=== PATIENT | female | born 1945 | race Caucasian/White ===

== ENCOUNTER 2017-02-19 16:05 | Inpatient (IN) | payer OTHER ==
[~2017-02-19] VITALS: Ht 157.5 cm; Wt 77.1 kg
--- NOTE | 2017-02-19 16:10 | NUR ---
02 SAT 91 RA AT [facility]
--- NOTE | 2017-02-19 16:19 | NUR ---
PT TO ED FOR EVAL OF LOW O2 SATS. PT WENT TO SEE HER PCP DR MILADYS ALMANZA FOR NOT FEELING WELL. SENT TO ED FOR FURTHER EVAL. PT STATES SHE HAS NOT BEEN EATING AND FEELING LETHARGIC. RA SATS 91%. PT DENIES PAIN, C/P.
--- NOTE | 2017-02-19 17:20 | NUR ---
RT COMPLETED BREATHING TX
--- NOTE | 2017-02-19 17:33 | ED DYSPNEA/ASTHMA COMPLAINT ---
History of Present Illness General Chief Complaint: General Adult Stated Complaint: SENT FOR EVAL LOW 02 SAT Allergies Coded Allergies: No Known Allergies (02/19/17) Triage Note: PT TO ED FOR EVAL OF LOW O2 SATS. PT WENT TO SEE HER PCP DR MILADYS ALMANZA FOR NOT FEELING WELL. SENT TO ED FOR FURTHER EVAL. PT STATES SHE HAS NOT BEEN EATING AND FEELING LETHARGIC. RA SATS 91%. PT DENIES PAIN, C/P. HPI: Ms. Santos 71 YO F with no significant PMH except smoking that she quit 25 years ago and surgery for hernia in the past was sent to [facility] ED by her PCP due to dyspnea, cough with sputum and exhaustion she has since ( 02/15/17). She reports that she was all right four days back when she developed cough along with fever. cough comes in bouts and brings up phlegm that is greenish in color nonbloody and scant in quantity. She also reported that since she is feeling exhausted and decreased appetite. She told the only drug she was taking after the of her was Lexapro. Last time she took Lexapro on Sunday. She denied chest pain, palpitation, LOC, dizziness, nausea, vomiting, abdominal pain and change in bowel movement. (BLADIMIR MALDONADO,RINGGOLD) General Source: patient, old records Exam Limitations: no limitations Vital Signs & Intake/Output Vital Signs & Intake/Output Vital Signs Date Time Temp Pulse Resp B/P B/P Pulse O2 O2 Flow FiO2 Mean Ox Delivery Rate 02/20 0011 100.2 02/19 2303 98.3 116 18 140/70 90 Room Air 02/19 2150 90 Nasal 3.0L Cannula 02/19 2140 100.2 110 24 150/85 90 Nasal 3.0L Cannula 02/19 2050 99.0 100 94 Nasal 2.0L Cannula 02/19 1935 100.0 108 18 149/67 93 Nasal 2.0L Cannula 02/19 1911 103 20 93 Nasal 2.0L Cannula 02/19 1834 103 19 94 Nasal 2.0L Cannula 02/19 1752 94 Nasal 4.0L Cannula 02/19 1645 92 Nasal 2.0L Cannula 02/19 1618 98.5 114 20 134/80 91 Room Air ED Intake and Output 02/20 0000 02/19 1200 Intake Total 200 Output Total Balance 200 Intake, Oral 200 Reconcile Medications Aspirin (Ecotrin*) 81 MG TABLET.DR 1 TAB PO DAILY HEART/BLOOD (Reported) Calcium Carbonate/Vitamin D3 (Calcium 500 + D Tablet) 500 MG-400 TABLET 1 TAB PO DAILY SUPPLEMENT (Reported) Cyanocobalamin (Vitamin B-12) (Unknown Strength) TABLET (Unknown Dose) PO DAILY SUPPLEMENT (Reported) Escitalopram Oxalate 20 MG TABLET 1 TAB PO DAILY MENTAL HEALTH (Reported) Triage Nurses Notes Reviewed? yes (KALEN DOLAN MD) Past History Travel History Traveled to [place] past 21 day No Medical History Psychiatric: depression Psychosocial History What is your primary language Italian Tobacco Use: Quit >30 days ago ETOH Use: denies use Illicit Drug Use: denies illicit drug use (MARK GARRISON MD) Medical History Any Pertinent Medical History? see below for history Surgical History Surgical History: non-contributory Family History Hx Contributory? No (KALEN DOLAN MD) Review of Systems Review of Systems Constitutional: Reports: fever, weakness. EENTM: Reports: no symptoms. Respiratory: Reports: cough, short of breath, sputum production. GI: Reports: no symptoms. Genitourinary: Reports: no symptoms. Musculoskeletal: Reports: no symptoms. Skin: Reports: no symptoms. Hematologic/Endocrine: Reports: no symptoms. (MARK GARRISON MD) Review of Systems Cardiovascular: Reports: see HPI. Neurological/Psychological: Reports: no symptoms. Immunologic/Allergic: Reports: no symptoms. All Other Systems: Reviewed and Negative (KALEN DOLAN MD) Physical Exam Physical Exam General Appearance: alert, awake, mild distress Respiratory: decreased breath sounds, rhonchi (MARK GARRISON MD) Physical Exam Head: atraumatic, normal appearance Eyes: Bilateral: PERRL, EOMI. Ears, Nose, Throat: normal pharynx, normal ENT inspection, hearing grossly normal Neck: normal inspection, supple, full range of motion, NO JVD Cardiovascular: regular rate/rhythm, normal peripheral pulses Gastrointestinal: normal bowel sounds, soft, non-tender, no organomegaly Extremities: normal inspection, normal capillary refill, normal range of motion Neurologic/Psych: no motor/sensory deficits, awake, alert, oriented x 3, normal gait, normal mood/affect Lymphatic: no anterior cervical mary Core Measures ACS in differential dx? No Severe Sepsis Present: No Septic Shock Present: No (MAGDALENO MALDONADO,KALEN Cespedes) Progress Differential Diagnosis: bronchitis, CHF, COPD, pulmonary embolism, pneumonia (BLADIMIR MALDONADO,RINGGOLD) Plan of Care: Orders Procedure Date/time Status Heart Healthy Diet 02/20 B Active CBC WITHOUT DIFFERENTIAL 02/20 600 Active BASIC ELECTROLYTES PLUS BUN&CR 02/20 600 Active OXYGEN SETUP (GEN) 02/19 2200 Complete Vital Signs 02/19 2149 Active Teach/Educate 02/19 2149 Active Pain Treatment and Response 02/19 2149 Active Nutritional Intake, Monitor 02/19 2149 Active Isolation 02/19 2149 Active Intake & Output 02/19 2149 Active Patient Care Conference 02/19 2149 Active Activity/Ambulation 02/19 2149 Active Pathway - chart 02/19 2053 Active TRC EVALUATION (GEN) 02/20 2052 Active Pathway - chart 02/20 2052 Active House Staff 02/20 2052 Active Patient Data 02/20 2052 Active SPECIMEN TO BE OBTAINED 02/20 2052 Active LOWER RESPIRATORY CULTURE 02/20 2052 Active Patient Data 02/20 2016 Active ED Holding Orders 02/19 2011 Active Admit to inpatient 02/19 2011 Active Vital Signs 02/19 2011 Active Code Status 02/19 2011 Active BLOOD CULTURE 02/19 1800 Active Intake & Output 02/19 1751 Active LOWER RESPIRATORY CULTURE 02/19 170 Active BLOOD CULTURE 02/19 170 Active URINALYSIS 02/19 170 Active TROPONIN LEVEL 02/19 170 Complete CBC WITHOUT DIFFERENTIAL 02/19 170 Complete B-TYPE NATRIURETIC PEP (BNP) 02/19 1708 Complete BASIC METABOLIC PANEL 02/19 1708 Complete EKG 02/19 1708 Active INCENTIVE SPIROMETRY TRX (GEN) 02/19 UNK Active VTE Mechanical Prophylaxis 02/19 UNK Active Vital Signs 02/19 UNK Complete Current Medications Sig/Pancho Start time Last Medication Dose Stop Time Status Admin Aspirin Buffered 81 MG DAILY 02/20 1000 AC (Ecotrin) Azithromycin 500 MG DAILY 02/20 1000 CAN (Zithromax) Azithromycin 500 MG Q24H 02/20 1000 AC (Zithromax) Dextrose/Water 250 ML (D5W) Calcium Carbonate 500 MG DAILY 02/20 1000 AC (TUMS) Escitalopram Oxalate 20 MG DAILY 02/20 1000 AC (Lexapro) Acetaminophen 650 MG Q6P PRN 02/19 2100 AC 02/20 (Tylenol) 0011 Acetaminophen/ 1 TAB Q6P PRN 02/19 2100 AC Hydrocodone Bitart (Vicodin) Oxycodone/ 2 TAB Q6P PRN 02/19 2100 AC Acetaminophen (Percocet) Sodium Chloride 1,000 ML .[id number] 02/19 2100 AC 02/19 (Normal Saline 0.9%) 2308 Amoxicillin 250 MG TID 02/19 1807 AC 02/19 (Amoxil) 2308 Laboratory Tests 02/19/17 1730: Anion Gap 11, Estimated GFR > 60, BUN/Creatinine Ratio 18.8, Glucose 131 H, Calcium 9.5, Troponin I 0.02, Iwe-M-Kbszjskcqmt Pept 151 H, CBC w Diff NO MAN DIFF REQ, RBC 4.89, MCV 84.3, MCH 27.5, RDW 15.0 H, MPV 8.3, Gran % 77.5 H, Lymphocytes % 9.2 L, Monocytes % 13.2 H, Eosinophils % 0, Basophils % 0.1, Absolute Granulocytes 7.9 H, Absolute Lymphocytes 0.9 L, Absolute Monocytes 1.3 H, Absolute Eosinophils 0, Absolute Basophils 0, PUBS MCHC 32.6 L Microbiology 02/20 2052 LOWER RESP: Respiratory Culture - ORD 02/20 2052 LOWER RESP: Gram Stain - ORD 02/19 1834 BLOOD: Blood Culture - RECD 02/19 1800 BLOOD: Blood Culture - COLB 02/19 170 LOWER RESP: Respiratory Culture - ORD 02/20 1708 LOWER RESP: Gram Stain - ORD According to history and examination we planned to start O2, EKG, C-XRAY, and labs. We also decided to nebulize her with albuterol and adrovent. As the patient is insisting going home so we will taper the O2 from 4L to 2L and obserb her if her saturation doesn't decrease then we will taper to her baseline that's room air before we send her home. We will also start amoxicillin 250mg orally that she can continue at home. (BLADIMIR MALDONADO,MARK) 7:[address] CHEST ANGIOGRAM (LAURA MALDONADO,RAHEL) Diagnostic Imaging: Viewed by Me: Radiology Read, CT Scan. Discussed w/RAD: Radiology Read, CT Scan. Initial ED EKG: NSR, nonspecific ST T wave chg Prior EKG: unchanged Hand-Off Endorsed To: RAHEL SANCHEZ MD Endorsed Time: 1899 Pending: CT (MAGDALENO MALDONADO,KALEN Cespedes) Radiology Impression: PATIENT: MARLENA SANTOS PRESENT AGE: 71 PATIENT ACCOUNT NO: [id number] : 44 LOCATION: [facility] ORDERING PHYSICIAN: MARK GARRISON MD SERVICE DATE: 02/19/17 EXAM TYPE: CAT - CTA CHEST-PULMONARY EMBOLISM EXAMINATION: CT ANGIOGRAM OF THE CHEST WITH AND WITHOUT CONTRAST (CT PULMONARY ANGIOGRAM FOR PE) CLINICAL INFORMATION: Reason for Study:
Presumptive Dx: pulmonary embolism
Signs Symptoms: dyspnea, desaturated to 84% on room air
COMPARISON: None TECHNIQUE: Prior to contrast administration, noncontrast localization images were obtained. Subsequently, multidetector volumetric imaging was performed from the thoracic inlet to below the diaphragms following the administration of 80 mL Omnipaque 350 intravenous contrast. No contrast reaction reported. Sagittal, coronal, and MIP oblique sagittal reformatted images were obtained on the CT workstation, uploaded to PACS, and reviewed. Total exam dose-length product 462 mGy-cm. FINDINGS: QUALITY OF STUDY/CONTRAST BOLUS: Satisfactory PULMONARY ARTERIES: No central or segmental pulmonary emboli. THORACIC AORTA: No aneurysm or dissection. LUNG: Both lungs are well-expanded. There is ill-defined patchy alveolar opacities in both upper lobes slightly greater on the right and superior segments off lower lobe. In addition there is a bandlike opacity with air bronchograms in right middle lobe adjacent to the major fissure and in the lingula. There are ill-defined alveolar opacities also scattered in both lower lobes. No confluent consolidation seen. PLEURA: No pleural effusion or pneumothorax. MEDIASTINUM: Normal heart size. No pericardial effusion. There are reactive lymph nodes in the aortic window with the largest lymph node measuring 1.1 cm image 19, series 4. No evidence of septal bowing or right heart strain. Suspect small hiatal hernia. CHEST WALL/AXILLA: No axillary or internal mammary lymphadenopathy. OSSEOUS STRUCTURES: No acute or suspicious osseous abnormality. UPPER ABDOMEN: Visualized liver, spleen, pancreas and bilateral adrenal adrenal glands unremarkable. There are multiple radiopaque gallstones without wall thickening. No reflux of contrast into the hepatic veins to suggest elevated right heart pressures. IMPRESSION: No evidence of PE or aortic dissection or aneurysm. Multiple ill-defined nonconfluent alveolar infiltrates in both upper lobes, both lower lobes predominantly in upper lobes. There are dense bandlike consolidations in right middle lobe and lingula. These above findings are suggestive of multilobular infiltrates. There are reactive lymph nodes in the mediastinum as discussed above. Suspect small hiatal hernia. VTE: negative DICTATED BY: DEEPA SMITH MD DATE/TIME DICTATED:02/19/171943 NATURAL RESOURCE MANAGER :ERNIE DATE/TIME TRANSCRIBED:02/19/171943 CONFIDENTIAL, DO NOT COPY WITHOUT APPROPRIATE AUTHORIZATION. <Electronically signed in Other Vendor System> SIGNED BY: DEEPA SMITH MD 02/19/171999 (LAURA MALDONADO,RAHEL) Departure Departure Condition: Stable Clinical Impression Primary Impression: Acute respiratory failure with hypoxia Secondary Impressions: Bronchitis Referrals: MILADYS ALMANZA MD (PCP/Family) Departure Forms: Customer Survey General Discharge Information (BLADIMIR MALDONADO,MARK) Departure Disposition: STILL A PATIENT Admission Note Spoke With: KATIA AGOSTO MD Documentation of Exam: Documentation of any treatments & extenuating circumstances including Concerns Regarding Discharge (functional status, medication knowledge or non-compliance, living conditions, etc.) that warrant an admission rather than observation: [ FOLLOW UP CTA, IV ABX, O2, PULM CONSULT, NEBS] Resident Co-Sign Statement Statement: ED Attending supervision documentation- [X] I saw and evaluated the patient. I have also reviewed all the pertinent lab results and diagnostic results. I agree with the findings and the plan of care as documented in the Resident's documentation. [X] I have reviewed the ED Record and agree with the Resident's documentation. [] Additions or exceptions (if any) to the Resident's note and plan are summarized below: [Patient sent in by her primary care physician for evaluation of fevers chills and anorexia productive cough and shortness of breath and hypoxia. Patient has decreased breath sounds with scattered rhonchi. Chest x-ray does not show any evidence of pneumonia. She has a left shift on her CBCs. Patient is requiring O2. Patient is alert and oriented 3. Patient is refusing to stay in the hospital since she states that she has to go home and take care of her dog. Patient advised that she needs further treatment. Patient still insistent upon going home. Patient ambulated in the emergency department.] (MAGDALENO MALDONADO,KALEN Cespedes) Departure Time of Disposition: 2010 (LAURA MALDONADO,RAHEL) Critical Care Note Critical Care Note Critical Care Time: mins: (45 MIN) (MAGDALENO MALDONADO,KALEN Cespedes)
[2017-02-19 17:36] LABS: ABSOLUTE BASOPHIL COUNT 0 /CUMM (0.0-0.2); ABSOLUTE EOSINOPHIL COUNT 0 /CUMM (0.0-0.7); ABSOLUTE GRANULOCYTE CT 7.9 /CUMM (1.4-6.5); ABSOLUTE LYMPH COUNT 0.9 /CUMM (1.2-3.4); ABSOLUTE MONOCYTE COUNT 1.3 /CUMM (0.10-0.60); BASOPHIL % 0.1 % (0.0-2.0); EOSINOPHIL % 0 % (0-5); GRANULOCYTE % 77.5 % (42.2-75.2); HEMATOCRIT 41.2 % (37-47); MEAN CORPUSCULAR HGB 27.5 PG (27.0-31.0); MEAN CORPUSCULAR HGB CONC 32.6 G/DL (33.0-37.0); MEAN CORPUSCULAR VOLUME 84.3 FL (81.0-99.0); MEAN PLATELET VOLUME 8.3 FL (7.4-10.4); PLATELET COUNT 292 /CUMM (130-400); RED BLOOD CELL CT 4.89 /CUMM (4.20-5.40); WHITE BLOOD CELL COUNT 10.1 /CUMM (4.8-10.8)
--- NOTE | 2017-02-19 17:49 | NUR ---
PT REPORTS COUGHING SINCE SUNDAY WITH GREEN PHLEM PRODUCTION. REPORTS NO HOME 02. LUNG SOUNDS CLEAR IN UPPER LOBES, DIMINISHED IN BASES. PT DENIES CP OR SOB. REPORTS NO HX OF COPD. PT A&OX4, RESP EVEN AND NONLABORED, EQUAL RISE AND FALL OF THE CHEST AND IN NAD AT THIS TIME. 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
--- NOTE | 2017-02-19 17:54 | NUR ---
LABS DRAWN AND SENT BY [facility], EKG COMPLETED BY [facility].
--- NOTE | 2017-02-19 17:55 | RADIOLOGY REPORT ---
EXAMINATION: XR PORTABLE CHEST CLINICAL INFORMATION: Dyspnea, COPD. COMPARISON: None TECHNIQUE: Portable frontal view of the chest was obtained. FINDINGS: The cardiomediastinal silhouette is largely unremarkable. There is mild mild interstitial prominence age and etiology indeterminate. Opacities of the bilateral lung bases likely overlying soft tissues. The lungs and pleural spaces otherwise appear clear without evidence of congestion, consolidation, or significant appearing effusion or atelectasis. There is no evidence of pneumothorax or pulmonary edema. Included osseous structures appear largely unremarkable. IMPRESSION: No evidence of an acute intrathoracic process. No definite pulmonary edema.
--- NOTE | 2017-02-19 18:07 | NUR ---
PT STATES "I DON'T WANT AN IV BECAUSE IM NOT STAYING." DR. DOLAN AWARE.
[2017-02-19] MEDS ORDERED: CALCIUM 500 +1 EAC5 PO (18:24)
[2017-02-19] MEDS ORDERED: ASPIRIN EC81 M1 PO (18:24)
[2017-02-19] MEDS ORDERED: ESCITALOPRAM OX20 MG PO (18:24)
[2017-02-19] MEDS ORDERED: VITAMIN B-121000 MC3 PO (18:25)
--- NOTE | 2017-02-19 18:30 | NUR ---
PER DR. DOLAN, ONLY 1SET OF BLOOD CULTURES TO BE DRAWN AND THIS TIME. YANETH CASAS NOTIFIED.
--- NOTE | 2017-02-19 18:55 | NUR ---
WHILE AMBULATING PT 02 84%.. INFORMED
--- NOTE | 2017-02-19 18:56 | NUR ---
FIRST SET OF BLOOD CULTURES SENT AT THIS TIME.
--- NOTE | 2017-02-19 19:11 | NUR ---
IV STARTED BY MEERA ALLEN IN PREP FOR CT. CT CALLED AND WILL GET PT SHORTLY. PT VERBALIZES AND AGREES TO POC.
--- NOTE | 2017-02-19 19:24 | NUR ---
PT IN CT FOR CTA AT THIS TIME.
--- NOTE | 2017-02-19 19:36 | NUR ---
PT BACK FROM CT AT THIS TIME.
--- NOTE | 2017-02-19 19:49 | NUR ---
AWAITING CTA RESULTS AT THIS TIME.
--- NOTE | 2017-02-19 20:00 | CT SCAN REPORT ---
EXAMINATION: CT ANGIOGRAM OF THE CHEST WITH AND WITHOUT CONTRAST (CT PULMONARY ANGIOGRAM FOR PE) CLINICAL INFORMATION: Reason for Study:
Presumptive Dx: pulmonary embolism
Signs Symptoms: dyspnea, desaturated to 84% on room air
COMPARISON: None TECHNIQUE: Prior to contrast administration, noncontrast localization images were obtained. Subsequently, multidetector volumetric imaging was performed from the thoracic inlet to below the diaphragms following the administration of 80 mL Omnipaque 350 intravenous contrast. No contrast reaction reported. Sagittal, coronal, and MIP oblique sagittal reformatted images were obtained on the CT workstation, uploaded to PACS, and reviewed. Total exam dose-length product 462 mGy-cm. FINDINGS: QUALITY OF STUDY/CONTRAST BOLUS: Satisfactory PULMONARY ARTERIES: No central or segmental pulmonary emboli. THORACIC AORTA: No aneurysm or dissection. LUNG: Both lungs are well-expanded. There is ill-defined patchy alveolar opacities in both upper lobes slightly greater on the right and superior segments off lower lobe. In addition there is a bandlike opacity with air bronchograms in right middle lobe adjacent to the major fissure and in the lingula. There are ill-defined alveolar opacities also scattered in both lower lobes. No confluent consolidation seen. PLEURA: No pleural effusion or pneumothorax. MEDIASTINUM: Normal heart size. No pericardial effusion. There are reactive lymph nodes in the aortic window with the largest lymph node measuring 1.1 cm image 19, series 4. No evidence of septal bowing or right heart strain. Suspect small hiatal hernia. CHEST WALL/AXILLA: No axillary or internal mammary lymphadenopathy. OSSEOUS STRUCTURES: No acute or suspicious osseous abnormality. UPPER ABDOMEN: Visualized liver, spleen, pancreas and bilateral adrenal adrenal glands unremarkable. There are multiple radiopaque gallstones without wall thickening. No reflux of contrast into the hepatic veins to suggest elevated right heart pressures. IMPRESSION: No evidence of PE or aortic dissection or aneurysm. Multiple ill-defined nonconfluent alveolar infiltrates in both upper lobes, both lower lobes predominantly in upper lobes. There are dense bandlike consolidations in right middle lobe and lingula. These above findings are suggestive of multilobular infiltrates. There are reactive lymph nodes in the mediastinum as discussed above. Suspect small hiatal hernia. VTE: negative
--- NOTE | 2017-02-19 20:25 | History & Physical ---
VIBHA MALDONADO,[facility] 02/19/172022: General Information and HPI MD Statement: I have seen and personally examined MARLENA SANTOS and documented this H&P. Source of Information: patient Exam Limitations: no limitations History of Present Illness: Patient is a 71-year-old female without any significant past medical history who has been feeling increased fatigue and decreased appetite since 02/15/2017. She states that she has noticed increasing shortness of breath on exertion, a productive cough with greenish phlegm, and fever once of 101F. She has also noticed that her feet have been a little more swollen than usual. She went to her primary care physician Dr. Beckham today for not feeling well. Her oxygen saturation on room air was 91%. She was sent by her primary care physician to the ED for further evaluation. The patient denies any fevers, chills, night sweats, headache, chest pain, palpitations, dizziness, nausea, vomiting, abdominal pain, changes in elimination. In the ED she received a nebulizer treatment with albuterol and atrovent and was started on amoxicillin 250mg for bronchitis. Allergies/Medications Allergies: Coded Allergies: No Known Allergies (02/19/17) Home Med list Aspirin (Ecotrin*) 81 MG TABLET.DR 1 TAB PO DAILY HEART/BLOOD (Reported) Calcium Carbonate/Vitamin D3 (Calcium 500 + D Tablet) 500 MG-400 TABLET 1 TAB PO DAILY SUPPLEMENT (Reported) Cyanocobalamin (Vitamin B-12) (Unknown Strength) TABLET (Unknown Dose) PO DAILY SUPPLEMENT (Reported) Escitalopram Oxalate 20 MG TABLET 1 TAB PO DAILY MENTAL HEALTH (Reported) Past History Travel History Traveled to [place] past 21 day No Medical History Psychiatric: depression Surgical History Surgical History: hernia repair Past Family/Social History Psychosocial History Smoking Status: Former Smoker (2ppd. last use 35 years ago) ETOH Use: denies use Illicit Drug Use: denies illicit drug use Review of Systems Review of Systems Constitutional: Denies: chills, diaphoresis, fever. EENTM: Denies: no symptoms. Cardiovascular: Denies: chest pain, edema, palpitations. Respiratory: Reports: cough, sputum production. GI: Denies: abdominal pain. Genitourinary: Reports: no symptoms. Musculoskeletal: Reports: no symptoms. Skin: Reports: no symptoms. Exam & Diagnostic Data Last 24 Hrs of Vital Signs/I&O Vital Signs Date Time Temp Pulse Resp B/P B/P Pulse O2 O2 Flow FiO2 Mean Ox Delivery Rate 02/20 0011 100.2 02/19 2303 98.3 116 18 140/70 90 Room Air 02/19 2150 90 Nasal 3.0L Cannula 02/20 2140 100.2 110 24 150/85 90 Nasal 3.0L Cannula 02/19 2050 99.0 100 94 Nasal 2.0L Cannula 02/19 1935 100.0 108 18 149/67 93 Nasal 2.0L Cannula 02/19 1911 103 20 93 Nasal 2.0L Cannula 02/19 1834 103 19 94 Nasal 2.0L Cannula 02/19 1752 94 Nasal 4.0L Cannula 02/19 1645 92 Nasal 2.0L Cannula 02/19 1618 98.5 114 20 134/80 91 Room Air Intake & Output 02/20 0800 02/20 0000 02/19 1600 Intake Total 200 Output Total Balance 200 Intake, Oral 200 Physical Exam General Appearance Alert, Oriented X3, Cooperative, No Acute Distress Skin No Rashes Skin Temp/Moisture Exam: Warm/Dry HEENT Atraumatic, PERRLA Neck Supple Lymphatic no neck lymphadenoapthy Cardiovascular Normal S1, Normal S2, tachycardic Lungs Normal Air Movement, scattered rhonchi Abdomen Soft, No Tenderness, No Hepatospenomegaly, No Masses Neurological Normal Speech Last 24 Hrs of Labs/Red: Laboratory Tests 02/19/17 1730: Anion Gap 11, Estimated GFR > 60, BUN/Creatinine Ratio 18.8, Glucose 131 H, Calcium 9.5, Troponin I 0.02, Bin-K-Wefqgnugcrl Pept 151 H, CBC w Diff NO MAN DIFF REQ, RBC 4.89, MCV 84.3, MCH 27.5, RDW 15.0 H, MPV 8.3, Gran % 77.5 H, Lymphocytes % 9.2 L, Monocytes % 13.2 H, Eosinophils % 0, Basophils % 0.1, Absolute Granulocytes 7.9 H, Absolute Lymphocytes 0.9 L, Absolute Monocytes 1.3 H, Absolute Eosinophils 0, Absolute Basophils 0, PUBS MCHC 32.6 L Microbiology 02/20 217 URINE ROUT: Legionella Antigen - ORD 02/20 217 URINE ROUT: Streptococcus pneumoniae Antigen (M - ORD 07/03 2052 LOWER RESP: Respiratory Culture - ORD 02/20 2052 LOWER RESP: Gram Stain - ORD 02/19 1834 BLOOD: Blood Culture - RECD 02/19 1800 BLOOD: Blood Culture - COLB 02/19 170 LOWER RESP: Respiratory Culture - ORD 02/19 170 LOWER RESP: Gram Stain - ORD Diagnostic Data CXR Results FINDINGS: The cardiomediastinal silhouette is largely unremarkable. There is mild mild interstitial prominence age and etiology indeterminate. Opacities of the bilateral lung bases likely overlying soft tissues. The lungs and pleural spaces otherwise appear clear without evidence of congestion, consolidation, or significant appearing effusion or atelectasis. There is no evidence of pneumothorax or pulmonary edema. Included osseous structures appear largely unremarkable. IMPRESSION: No evidence of an acute intrathoracic process. No definite pulmonary edema. Other Results CTA-chest IMPRESSION: No evidence of PE or aortic dissection or aneurysm. Multiple ill-defined nonconfluent alveolar infiltrates in both upper lobes, both lower lobes predominantly in upper lobes. There are dense bandlike consolidations in right middle lobe and lingula. These above findings are suggestive of multilobular infiltrates. There are reactive lymph nodes in the mediastinum as discussed above. Suspect small hiatal hernia. VTE: negative Assessment/Plan Assessment: A: Patient is a 71-year-old female without any significant past medical history who has been feeling increased fatigue, sob on exertion, and productive cough with greenish plegm, and decreased appetite since 02/15/2017 found to have an unremarkable cxr, sinus tachy on ekg, BNP of 151, but dense bandlike consolidations in right middle lobe and lingula suggestive of multilobular infiltrates due to pneumonia. 1. Hypoxic respiratory failure secondary to pneumonia Patient has been feeling increased fatigue, sob on exertion, and productive cough with greenish plegm, and decreased appetite for the past 5 days. She stated her max temp during this time period was 101. Her o2 saturation on RA at her PCP was 91%. She was given a nebulizer treatment in the ED and 1 dose of amoxicillin for bronchitis. Her current O2 saturation was 90% on 3L NC. Her ekg revealed sinus tach and troponin of .02 making ACS lower on the differential. We will recheck her ekg and trops again tomorrow AM. Her BNP of 151 and lack of edema on physical exam would place CHF exascerbation also lower on the differential. Another possible ddx could possibly be COPD given her smoking history but she did not state a history of COPD. Her WBC is 10.1 with a left shift. Her hypoxia in addition to history of green sputum and multilobular infiltrates would make pneumonia is most likely diagnosis at this point despite her lack of fever. We will test for sources of pneumonia including: legionella, strep pneumo, resp cultures/gramstain, and blood cultures. We will also start nebulizer treatments prn and mucinex. We will treat her with azithromycin. -f/u att note -f/u legionella antigen, strep pneumo antige, respiratory culture, blood cultures, and gram stain -continue ipratropium prn, albuterol, prn and guafensin -Azithromycin 500mg q24h IV and ceftriaxone 1g daily -repeat ekg -f/u repeat trops 2. Persistent tachycardia Tachycardia is in the setting of sepsis and dehydration. Her pulse rate has ranged from 110-116. We will hydrate and monitor her HR. We will check TSH, free T4. We will repeat EKG and repeat tropnins in the AM as stated above -continue NS fluids -f/u tsh and t4 3. Depression Patient reports history of depression on escitalopram 20mg at home -continue escitalopram 20mg daily po 4. Pain management -tylenol 650 q6 prn pain scale 1-3 -vicodin q6 prn pain 4-6 scale 5. Home medications Patient takes tums 500mg daily and aspirin 81mg daily at home -continue tums 500mg daily -continue aspirin 81 mg daily 6. Anticoagulation: Lovenox 7. Code status: As Ranked By This Provider Problem List: 1. Acute respiratory failure with hypoxia 2. Tachycardia Core Measures/Miscellaneous Acute Coronary Syndrome ACS Diagnosis: No Cerebrovascular Accident CVA/TIA Diagnosis: No Congestive Heart Failure CHF Diagnosis: No VTE (View Protocol) VTE Risk Factors: Acute medical illness, Age > 40 No [facility] VTE prophylaxis d/t: No contraindications No VTE Pharm Prophylaxis d/t: VTE low risk (on lovenox), No contraindications VTE Diagnosis: No VTE Type: NONE VTE Confirmed by (Test): NONE Sepsis (View Protocol) Severe Sepsis Present: No Septic Shock Septic Shock Present: No Miscellaneous Documentation Attending Case Discussed With: SURENDRA MALDONADO,KATIA ADAME MD,[facility] 02/20/17 0144: Assessment/Plan As Ranked By This Provider Problem List: 1. Pneumonia 2. Acute respiratory failure with hypoxia 3. Bronchitis Core Measures/Miscellaneous Acute Coronary Syndrome ACS Diagnosis: No Cerebrovascular Accident CVA/TIA Diagnosis: No Congestive Heart Failure CHF Diagnosis: No VTE (View Protocol) VTE Risk Factors: [facility] medical illness [facility] prophylaxis d/t: No contraindications No VTE Pharm Prophylaxis d/t: No contraindications VTE Diagnosis: No VTE Type: NONE VTE Confirmed by (Test): NONE Miscellaneous Documentation Attending Case Discussed With: KATIA AGOSTO MD Primary Care Physician: MILADYS ALMANZA MD Patient sees these Specialists NA Level of Patient Care: General Medicine Resident Review Statement Resident Statement: examined this patient, discussed with event marketing intern, agreed with event marketing intern Other Findings: Ms Santos is a 71-year-old female with past medical history of depression who presented to the emergency department on the evening of 02/19/2017 stating that she is continuing to experience a productive cough. Cough is been going on since last week . Phlegm is green in nature. Prior to admission the patient had visited her PCP Dr. Beckham who instructed her to come to the emergency department after she was found to be hypoxic. Prior to coming into the emergency department the patient also was febrile, temperature taken at home was 101. She denies any recent travel or exposure to sick contacts. She does have an extensive smoking history, she smoked 2PPD (quit 35 years ago), did not reveal to us just how long she smoked for. Review of symptoms: positive for shortness of breath however she denied any chest pain, palpitations, loss of consciousness, dizziness. She denies any nausea or vomiting. HEENT: extraocular motion intact, no nystagmus. Pupils equally round and reactive to light and accommodation. Nose is atraumatic. External auditory canal and Tympanic membranes clear. Pharynx normal. No swelling or edema. Neck: Supple, no lymphadenopathy, normal range of motion without pain or tenderness Back: Nontender, no CVA tenderness. Cardiovascular: Regular rate and rhythms no murmurs rubs or gallops, Respiratory: Chest nontender. No respiratory distress. Scattered Rhonchi. Abdomen: Soft, nontender nondistended, no appreciable organomegaly. Normal bowel sounds. No ascites, no rebound or guarding. Extremity: Edema 2+, no calf tenderness to palpation, normal and equal pulses. Neuro: Alert oriented X3. Cranial nerves II through XII grossly intact. Skin: No appreciable rash on exposed skin, skin is warm and dry. L: WBC 9.2, H&H 13.5 and 41.2 respectively. Platelets 307. Initial troponin 0.02. ProBNP 151. Glucose 131. EXAM TYPE: RAD - XRY-PORTABLE CHEST XRAY IMPRESSION: No evidence of an acute intrathoracic process. No definite pulmonary edema. EXAM TYPE: CAT - CTA CHEST-PULMONARY EMBOLISM IMPRESSION: No evidence of PE or aortic dissection or aneurysm. Multiple ill-defined nonconfluent alveolar infiltrates in both upper lobes, both lower lobes predominantly in upper lobes. There are dense bandlike consolidations in right middle lobe and lingula. These above findings are suggestive of multilobular infiltrates. A/P This is a 71-year-old female past medical history of depression who is coming for worsening dyspnea and dyspnea on exertion. This has likely been caused by pneumonia. Acute hypoxic respiratory failure. Likely due to community-acquired pneumonia, Impending Sepsis. We will admit the patient to general medicine service and continue on IV antibiotics. IV ceftriaxone and IV azithromycin for community-acquired pneumonia. Follow-up on urinary antigen for Legionella and streptococcal pneumonia. Sputum culture. Mucinex 600 MG BID Persistent tachycardia CTA done in the ED negative for a DVT EKG and Troponin in AM to rule out any cardiac pathology. TSH and FT4: 1.490 and 1.22 History of depression Continue Escitalopram 20 mg DVT prophylaxis Lovenox Full code SURENDRA MALDONADO, [facility] 02/20/17 0354: Attending MD Review Statement Attending Statement Attending MD Statement: examined this patient, discuss w/resident/PA/LAST INSERTER, agreed w/resident/PA/LAST INSERTER Attending Assessment/Plan: 71 yo F ex-smoker with h/o depression, osteopenia, is sent in from PCP's office for evaluation of hypoxia. Patient reports, she developed sore throat 5 days ago associated with cough productive of green phlegm, exertional dyspnea, fatigue, anorexia and poor appetite. She tried OTC meds without relief. Noted a temp of 101 at home. Seen at PCP's office today, was hypoxic to 87% on RA, sent to ER. Denies sick contacts, no recent travel. Never had flu shot. She lives with her dog and did not wish to stay in the hospital as there is no one to care for her dog. She recceived amoxicillin (for bronchitis) and was ambulated in the ER, dropped her sats to 84% on RA was evidently dyspneic. Admission was suggested, she was able to arrange for her sister in law to take care of her dog for tonight. Vitals: Tmax 100.2, tachycardic to 110's, BP 140/70, sats 90-94% on 3L. Exam: AAO, in no apparent distress, no pharyngeal erythema, dry mucous membranes+, Chest bibasilar reduced air entry with scattered rhonchi R>L. Otherwise unremarkable exam. Labs: no leukocytosis, bicarb 31, trop neg. EKG: Sinus tachycardia. CXR: no acute process, no pulmonary edema. CTA chest: no PE, multilobular infiltrates both upper lobes with dense bandlike consolidation in right middle lobe and lingula, reactive mediastinal lymph nodes. 1. Acute hypoxic respiratory failure, impending sepsis in the setting of community acquired pneumonia (multilobular infiltrates) and bronchitis. GM admit , TRC nebs, check urine legionella, strep Ag, sputum culture, IV ceftriaxone and azithromycin, mucinex BID, IV fluids. 2. Persistent tachycardia in the setting of sepsis and dehydration. Will hydrate and monitor HR. No evidence of PE on CTA. Would check TSH, free T4 to assess for underlying hyperthyroidism. Recheck EKG and troponin in AM. DVT ppx Lovenox. Full code. Social issue: Please note, patient is worried about the care of her dog and would wish to be discharged in AM.
--- NOTE | 2017-02-19 20:41 | NUR ---
REPORT GIVEN TO MEERA MURCIA AND ANSWERED ALL QUESTIONS. TRANSPORT BOOKED.
[2017-02-19 21:40] VITALS: BP 150/85
[2017-02-19 23:03] VITALS: BP 140/70
--- NOTE | 2017-02-20 00:23 | NUR ---
A+O X 3. ON 3L O2 VIA NC. EXERTIONAL SHORTNESS OF BREATH NOTED HR 110. ASSOCIATE PROFESSOR OF MEDIA ARTS AWARE. TEMP 100.2. TYLENOL GIVEN. OTHER VSS DENIES CHEST PAIN. + PULSES. DENIES NUMBNESS/TINGLING. BOWEL SOUNDS AUDIBLE SKIN C/D/I. STEADY GAIT. PATIENT REFUSED TO BE WEIGHED. BED LOW AND LOCKED. CALL LIGHT WITHIN REACH. SAFETY MAINTAINED
--- NOTE | 2017-02-20 03:27 | Admission Certification ---
Admission Certification Certification Statement - As attending physician, I certify that at the time of - admission, based on clinical presentation, severity of - symptoms, need for further diagnostic testing and - therapeutic interventions, and risk of adverse outcomes - without in-hospital treatment, in my clinical assessment, - this patient requires an acute hospital stay for a minimum - of two nights or longer. I have also considered psychsocial - factors such as support system, advanced age, financial - issues, cognitive issues, and failed out-patient treatments, - past re-admission history, safety of patient, and lack of - compliance as applicable. Specific rationale supporting this admission is: Acute hypoxic respiratory failure, community acquired pneumonia.
[2017-02-20 07:01] VITALS: BP 136/78
[2017-02-20 07:47] LABS: ABSOLUTE BASOPHIL COUNT 0 /CUMM (0.0-0.2); ABSOLUTE EOSINOPHIL COUNT 0 /CUMM (0.0-0.7); ABSOLUTE GRANULOCYTE CT 7.1 /CUMM (1.4-6.5); ABSOLUTE LYMPH COUNT 1.1 /CUMM (1.2-3.4); BASOPHIL % 0.3 % (0.0-2.0); EOSINOPHIL % 0.3 % (0-5); GRANULOCYTE % 76.7 % (42.2-75.2); HEMATOCRIT 41.2 % (37-47); MEAN CORPUSCULAR HGB 27.6 PG (27.0-31.0); MEAN CORPUSCULAR HGB CONC 32.7 G/DL (33.0-37.0); MEAN CORPUSCULAR VOLUME 84.3 FL (81.0-99.0); MEAN PLATELET VOLUME 8.5 FL (7.4-10.4); PLATELET COUNT 307 /CUMM (130-400); RBC DISTRIBUTION WIDTH 15.4 % (11.5-14.5); RED BLOOD CELL CT 4.88 /CUMM (4.20-5.40); WHITE BLOOD CELL COUNT 9.2 /CUMM (4.8-10.8)
--- NOTE | 2017-02-20 09:04 | PN- Housestaff ---
Subjective Follow-up For: Multilobar pneumonia Subjective: She is feel ok this morning, not as well as she had hoped. She has a dog at home with whom she is very close, and she feels bad leaving him alone. She wanted to go home today, but we discussed that she needs at least 24-48 hours of IV antibiotics for multilobar pneumonia, and she understands. Review of Systems Constitutional: Reports: malaise, weakness. Cardiovascular: Denies: no symptoms. Respiratory: Reports: cough, short of breath, sputum production. Gastrointestinal: Denies: no symptoms. Genitourinary: Denies: no symptoms. Objective Last 24 Hrs of Vital Signs/I&O Vital Signs Date Time Temp Pulse Resp B/P B/P Pulse O2 O2 Flow FiO2 Mean Ox Delivery Rate 02/20 0701 99.2 89 20 136/78 92 02/20 0011 100.2 02/19 2303 98.3 116 18 140/70 90 Room Air 02/19 2150 90 Nasal 3.0L Cannula 02/19 2140 100.2 110 24 150/85 90 Nasal 3.0L Cannula 02/19 2050 99.0 100 94 Nasal 2.0L Cannula 02/19 1935 100.0 108 18 149/67 93 Nasal 2.0L Cannula 02/19 1911 103 20 93 Nasal 2.0L Cannula 02/19 1834 103 19 94 Nasal 2.0L Cannula 02/19 1752 94 Nasal 4.0L Cannula 02/19 1645 92 Nasal 2.0L Cannula 02/19 1618 98.5 114 20 134/80 91 Room Air Intake & Output 02/20 1600 02/20 0800 02/20 0000 Intake Total 600 200 Output Total 300 Balance 300 200 Intake, IV 600 Intake, Oral 200 Output, Urine 300 Physical Exam General Appearance: Alert, Oriented X3, Cooperative, No Acute Distress Cardiovascular: Regular Rate, Normal S1, Normal S2, No Murmurs Lungs: Diffuse rhonci. Abdomen: Normal Bowel Sounds, Soft, No Masses Extremities: No Edema Current Medications: Current Medications Sig/Pancoh Start time Last Medication Dose Route Stop Time Status Admin Acetaminophen 650 MG .STK-MED ONE 02/20 001 DC PO 02/20 0012 Acetaminophen 650 MG Q6P PRN 02/19 2100 AC 02/20 PO 0011 Acetaminophen/ 1 TAB Q6P PRN 02/19 2100 AC Hydrocodone Bitart PO Albuterol Sulfate 3 ML Q6 PRN 02/20 0230 AC 02/20 INH 1137 Albuterol Sulfate 3 ML ONCE ONE 02/19 1645 DC 02/19 INH 02/19 1646 1645 Amoxicillin 0 .STK-MED ONE 02/19 1820 DC PO Amoxicillin 250 MG TID 02/19 1807 DC 02/19 PO 2308 Aspirin Buffered 81 MG DAILY 02/20 1000 AC 02/20 PO 0933 Azithromycin 500 MG DAILY 02/20 1000 CAN IV Azithromycin 500 MG Q24H 02/20 1000 DC Dextrose/Water 250 ML IV Azithromycin 500 MG Q24H 02/20 0230 AC 02/20 Dextrose/Water 250 ML IV 0317 Azithromycin 500 MG ONCE ONE 02/19 2030 CAN Sodium Chloride 250 ML IV 02/20 2129 Calcium Carbonate 500 MG DAILY 02/20 1000 AC 02/20 PO 0933 Ceftriaxone Sodium 1,000 MG DAILY 02/21 1000 AC IV Ceftriaxone Sodium 1,000 MG ONCE ONE 02/20 0215 DC 02/20 IV 02/20 0216 0316 Ceftriaxone Sodium 1,000 MG ONCE ONE 02/19 2030 CAN IV 02/20 2031 Enoxaparin Sodium 40 MG DAILY 02/20 1000 AC 02/20 SC 1052 Escitalopram Oxalate 20 MG DAILY 02/20 1000 AC 02/20 PO 0933 Guaifenesin 600 MG Q12 02/20 0230 AC 02/20 PO 0318 Ipratropium Epsom 2.5 ML ONCE PRN 02/20 0230 AC 02/20 INH 1137 Ipratropium Epsom 2.5 ML ONCE ONE 02/19 1645 DC 02/19 INH 02/19 1646 1645 Oxycodone/ 2 TAB Q6P PRN 02/19 2100 AC Acetaminophen PO Sodium Chloride 1,000 ML .[id number] 02/19 2100 AC 02/19 IV 02/20 2339 2308 Last 24 Hrs of Lab/Red Results Last 24 Hrs of Labs/Mics: Laboratory Tests 02/20/17 0700: Urine Color YEL, Urine Clarity HAZY H, Urine pH 6.0, Ur Specific Issue 1.020, Urine Protein 100 H, Urine Ketones TRACE H, Urine Nitrite NEG, Urine Bilirubin NEG@ICTO, Urine Urobilinogen 2.0 H, Ur Leukocyte Esterase NEG, Ur Microscopic SEDIMENT EXAMINED, Urine RBC 1-3, Urine WBC 3-5 H, Ur Epithelial Cells MOD H, Urine Bacteria MOD H, Urine Hemoglobin MOD H, Urine Glucose NEG 02/20/17 0640: Anion Gap 12, Estimated GFR > 60, BUN/Creatinine Ratio 17.5, Troponin I 0.02, TSH 2.890, Free T4 1.25, CBC w Diff NO MAN DIFF REQ, RBC 4.88, MCV 84.3, MCH 27.6, RDW 15.4 H, MPV 8.5, Gran % 76.7 H, Lymphocytes % 12.1 L, Monocytes % 10.6 H, Eosinophils % 0.3, Basophils % 0.3, Absolute Granulocytes 7.1 H, Absolute Lymphocytes 1.1 L, Absolute Monocytes 1.0 H, Absolute Eosinophils 0, Absolute Basophils 0, PUBS MCHC 32.7 L 02/19/17 1730: Anion Gap 11, Estimated GFR > 60, BUN/Creatinine Ratio 18.8, Glucose 131 H, Calcium 9.5, Troponin I 0.02, Lgk-U-Lmwxnjjkgec Pept 151 H, TSH 1.490, Free T4 1.22, CBC w Diff NO MAN DIFF REQ, RBC 4.89, MCV 84.3, MCH 27.5, RDW 15.0 H, MPV 8.3, Gran % 77.5 H, Lymphocytes % 9.2 L, Monocytes % 13.2 H, Eosinophils % 0, Basophils % 0.1, Absolute Granulocytes 7.9 H, Absolute Lymphocytes 0.9 L, Absolute Monocytes 1.3 H, Absolute Eosinophils 0, Absolute Basophils 0, PUBS MCHC 32.6 L Microbiology 02/20 955 LOWER RESP: Respiratory Culture - CAN Cancelled: NUMBER OF SQUAMOUS CELLS INDICATES POOR QUALITY SPECIMEN 02/20 955 LOWER RESP: Gram Stain - CAN Cancelled: NUMBER OF SQUAMOUS CELLS INDICATES POOR QUALITY SPECIMEN 02/20 700 URINE ROUT: Legionella Antigen - COMP 02/20 700 URINE ROUT: Streptococcus pneumoniae Antigen (M - COMP 02/20 2052 LOWER RESP: Respiratory Culture - COLB 02/20 2052 LOWER RESP: Gram Stain - COLB 02/19 183 BLOOD: Blood Culture - RECD 02/19 1800 BLOOD: Blood Culture - CAN Cancelled: SPECIMEN NOT RECEIVED IN LABORATORY Assessment/Plan Assessment: A: Patient is a 71-year-old female without any significant past medical history who has been feeling increased fatigue, sob on exertion, and productive cough with greenish plegm, and decreased appetite since 02/15/2017 found to have an unremarkable cxr, sinus tachy on ekg, BNP of 151, but dense bandlike consolidations in right middle lobe and lingula suggestive of multilobular infiltrates due to pneumonia. 1. Hypoxic respiratory failure secondary to multilobar pneumonia, septic Patient has been feeling increased fatigue, sob on exertion, and productive cough with greenish plegm, and decreased appetite for the past 5 days. She stated her max temp during this time period was 101. Her o2 saturation on RA at her PCP was 91%. She was given a nebulizer treatment in the ED and 1 dose of amoxicillin for bronchitis. Her current O2 saturation was 90% on 3L NC. Her ekg revealed sinus tach and troponin of .02 making ACS lower on the differential. Her BNP of 151 and lack of edema on physical exam would place CHF exascerbation also lower on the differential. Another possible ddx could possibly be COPD given her smoking history but she did not state a history of COPD. Her WBC is 10.1 with a left shift. Her hypoxia in addition to history of green sputum and multilobular infiltrates would make pneumonia is most likely diagnosis at this point despite her lack of fever. -f/u legionella antigen, strep pneumo antige, respiratory culture, blood cultures, and gram stain -continue ipratropium prn, albuterol, prn and guafensin -Azithromycin 500mg q24h IV -Ceftriaxone 1g Q24H -Guaifensesin -Albuterol -Ipratropium 2. Persistent tachycardia: CTA was negative for a PE but showed multilobar pneumonia. She is no longer tachycardic. -Stop fluids. 3. Depression Patient reports history of depression on escitalopram 20mg at home -continue escitalopram 20mg daily po 4. Pain management -tylenol 650 q6 prn pain scale 1-3 -vicodin q6 prn pain 4-6 scale 5. Home medications Patient takes tums 500mg daily and aspirin 81mg daily at home -continue tums 500mg daily -continue aspirin 81 mg daily 6. Anticoagulation: Lovenox Problem List: 1. Acute respiratory failure with hypoxia 2. Pneumonia Pain Ratin Pain Location: none Pain Goal: Remain pain free Pain Plan: percoset, vicodin, tylenol Tomorrow's Labs & Rationales: None.
--- NOTE | 2017-02-20 09:05 | PN- Att Addend ---
Attending Addendum Attending Brief Note Patient is still feeling quite short of breath, she remains on 2 L of oxygen. This is a 71-year-old female ex-smoker (2ppd quit 35 years ago) is here with acute onset of dyspnea since February 15 with cough with greenish phlegm and a fever of up to 101 at home. Noted to be in acute hypoxemic respiratory failure in the ER with sats at 87% low-grade temp of 100.2 and persistently tachycardic. CTA done for a PE was negative for PE but showed multilobar pneumonia with bandlike consolidation in both segments of upper lobes and right middle lobe. Continue IV ceftriaxone and azithromycin for community-acquired pneumonia, after this bag of fluids is done we can stop the fluids. Get sputum Gram stain and culture. No need to check daily labs as the white count is already coming down and her BEP is stable. She is very keen on going home to take care of her dog but we explained to her the need for intravenous antibiotics at least for another 24 hours and tapering off oxygen.
[2017-02-20 14:53] VITALS: BP 140/80
[2017-02-20 21:47] VITALS: BP 126/82
[2017-02-21 06:18] VITALS: BP 130/70
--- NOTE | 2017-02-21 07:15 | PN- Housestaff ---
See Addendum Subjective Follow-up For: Multilobar pneumonia Subjective: Ms. Santos is feeling better today. She is still coughing, but not producing anything. Her breathing is improved. She would like to go home but understands that she has to stay for her health. Her pneumonia is quite severe. Review of Systems Constitutional: Denies: no symptoms. Cardiovascular: Denies: no symptoms. Respiratory: Reports: cough. Gastrointestinal: Denies: no symptoms. Genitourinary: Denies: no symptoms. Musculoskeletal: Denies: no symptoms. Objective Last 24 Hrs of Vital Signs/I&O Vital Signs Date Time Temp Pulse Resp B/P B/P Pulse O2 O2 Flow FiO2 Mean Ox Delivery Rate 02/21 1000 96 Nasal 3.0L Cannula 02/21 0800 94 Nasal 2.0L Cannula 02/21 0618 98.1 94 20 130/70 94 Nasal 3.0L Cannula 02/21 0000 95 Nasal 2.0L Cannula 02/20 2147 98.2 92 20 126/82 95 Nasal 3.0L Cannula 02/20 1600 Nasal 2.0L Cannula 02/20 1453 97.7 114 20 140/80 95 Nasal 3.0L Cannula Intake & Output 02/21 1600 / 0800 07/ 0000 Intake Total 840 1200 Output Total Balance 840 1200 Intake, IV 600 600 Intake, Oral 240 600 Number 0 Bowel Movements Physical Exam General Appearance: Alert, Oriented X3, Cooperative, No Acute Distress Cardiovascular: Regular Rate, Normal S1, Normal S2 Lungs: Diffuse crackles Abdomen: Normal Bowel Sounds, Soft, No Masses Neurological: Normal Speech Extremities: No Edema Current Medications: Current Medications Sig/Pancho Start time Last Medication Dose Route Stop Time Status Admin Acetaminophen 650 MG Q6P PRN 02/19 2100 AC 02/20 PO 0011 Acetaminophen/ 1 TAB Q6P PRN 02/19 2100 AC Hydrocodone Bitart PO Albuterol Sulfate 3 ML Q6 PRN 02/20 0230 AC 02/21 INH 0953 Aspirin Buffered 81 MG DAILY 02/20 1000 AC 02/20 PO 0933 Azithromycin 500 MG Q24H 02/21 2200 AC Sodium Chloride 250 ML IV Azithromycin 500 MG Q24H 02/20 2200 DC 02/20 Dextrose/Water 250 ML IV 2202 Azithromycin 500 MG Q24H 02/20 0230 DC 02/20 Dextrose/Water 250 ML IV 0317 Calcium Carbonate 500 MG DAILY 02/20 1000 AC 02/20 PO 0933 Ceftriaxone Sodium 1,000 MG DAILY 02/21 1000 AC 02/21 IV 1041 Enoxaparin Sodium 40 MG DAILY 02/20 1000 AC 02/20 SC 1052 Escitalopram Oxalate 20 MG DAILY 02/20 1000 AC 02/20 PO 0933 Guaifenesin 600 MG 0800,1600 02/21 1600 AC PO Guaifenesin 600 MG Q12 02/20 0230 DC 02/21 PO 1041 Guaifenesin/Codeine 10 ML Q8P PRN 02/21 0815 AC Phosphate PO Ipratropium [place] 2.5 ML ONCE PRN 02/20 0230 AC 02/21 INH 0954 Oxycodone/ 2 TAB Q6P PRN 02/19 2100 AC Acetaminophen PO Sodium Chloride 1,000 ML .[id number] 02/19 2100 DC 02/20 IV 02/20 2339 1437 Assessment/Plan Assessment: Patient is a 71-year-old female without any significant past medical history who has been feeling increased fatigue, sob on exertion, and productive cough with greenish plegm, and decreased appetite since 02/15/2017 found to have an unremarkable cxr, sinus tachy on ekg, BNP of 151, but dense bandlike consolidations in right middle lobe and lingula suggestive of multilobular infiltrates due to pneumonia. She is improving clinically, still coughing WBC always normal, but severe radiographic findings. She will need radiographic follow up upon discharge, which can potentially be tomorrow. 1. Hypoxic respiratory failure secondary to multilobar pneumonia: Improving. All studies/cultures negative so far. She is still coughing but not producing anything. -continue ipratropium prn, albuterol, prn and guafensin -Azithromycin 500mg q24h IV -Ceftriaxone 1g Q24H -Guaifensesin -Albuterol -Ipratropium -Codeine/robitussin #Depression Patient reports history of depression on escitalopram 20mg at home -continue escitalopram 20mg daily po #Pain management -tylenol 650 q6 prn pain scale 1-3 -vicodin q6 prn pain 4-6 scale #Home medications Patient takes tums 500mg daily and aspirin 81mg daily at home -continue tums 500mg daily -continue aspirin 81 mg daily 6. Anticoagulation: Lovenox Full code Problem List: 1. Pneumonia Pain Ratin Pain Location: No pain Pain Goal: Remain pain free Pain Plan: Percoset, vicodin Tomorrow's Labs & Rationales: None required. Discharge Plan Anticipated Discharge (Day): tomorrow
[2017-02-21 14:27] VITALS: BP 136/68
--- NOTE | 2017-02-21 16:21 | Discharge Summary ---
Visit Information Visit Dates Admission Date: 02/19/17 Discharge Date: 02/26/2017 Hospital Course Course Attending Physician: ORLY CARDENAS MD Primary Care Physician: ARCHIE MALDONADO,[facility] Course: Ms. Santos is a 71-year-old female without any significant past medical history who presented with increased fatigue, sob on exertion, and productive cough with greenish plegm, and decreased appetite since 02/15/2017 found to have an unremarkable cxr, sinus tachy on ekg, BNP of 151, but dense bandlike consolidations in right middle lobe and lingula on CTA suggestive of multilobular infiltrates due to pneumonia. She was treated for this multilobar pneumonia. She did not improve significantly on ceftriaxone/azithromycin so we had a pulm consult and repeat CT that showed worsening bilateral airspace opacities both groundglass and consolidative. Similar appearance of the more dense focal consolidation in both the right middle lobe and lingula with bronchiectasis and air bronchograms. There was also a trace right pleural effusion that was too small to tap on ultrasound. She had increasing O2 requirement as well. Because of this, we broadened antibiotic coverage to vanc/ceftazidine and she has since improved. She is now off oxygen, walking, and breathing much better. #Hypoxic respiratory failure secondary to multilobar pneumonia: Legionella antigen, strep penumon antigen, respiratory culture, and blood culture all neg/ no growth. Trops negative as well, EKG within normal limits. She has been treated with ceftriaxone and azithromycin initially and then switched to vanc/ ceftazidine when she did not improve as expected. She also received ipratropium , albuterol, guaifenesin, benzonatate, and codeine/Robitussin for cough and breathing. She has since gotten much better and is no longer requiring oxygen. She amublated without dyspnea and is coughing less. She will go home with seven more days on levofloxacin. #Tachycardia: She was initialyl tachycardic upon admission. TSH and free T4 was checked and are normal. Her heart rate normalized after fluid resuscitation. #Depression: Her home medication was continued #Pain management: Her pain was managed per the following scale: -tylenol 650 q6 prn pain scale 1-3 -vicodin q6 prn pain 4-6 scale #Daily ASA: continued home aspirin. DVT prophylaxis was done with lovenox. Allergies: Coded Allergies: No Known Allergies (02/19/17) Disposition Summary Disposition Principal Diagnosis: Hypoxic respiratory failure secondary to multilobar pneumonia Additional Diagnosis: Tachycardia, depression. Discharge Disposition: home or self care Discharge Instructions General Discharge Information Code Status: Full Code Patient's Diet: Heart healthy diet Patient's Activity: Advance as tolerated. Follow-Up Instructions/Appts: Please follow up with your PCP (Dr. Rivera). Please take all medications as directed. Medications at Discharge Discharge Medications: Continue taking these medications: Escitalopram Oxalate (Escitalopram Oxalate) 20 MG TABLET 1 Tablet ORAL DAILY Qty = 90 Comments: Last Taken: 02/22/17 Time: 0840 AM Calcium Carbonate/Vitamin D3 (Calcium 500 + D Tablet) 500 MG-400 TABLET 1 Tablet ORAL DAILY Comments: Last Taken: 02/20/17 Time: 0930 AM Aspirin (Ecotrin*) 81 MG TABLET.DR 1 Tablet ORAL DAILY Comments: NOT GIVEN IN HOSPITAL Cyanocobalamin (Vitamin B-12) (Unknown Strength) TABLET 1,000 Microgram ORAL DAILY Comments: NOT GIVEN IN HOSPITAL Start taking the following new medications: Levofloxacin (Levaquin) 500 MG TABLET 1 Tablet ORAL TWICE DAILY Qty = 14 No Refills Instructions: Take as directed Guaifenesin (Guaifenesin ER) 600 MG TAB.ER.12H 1 Tablet ORAL TWICE DAILY Qty = 8 No Refills Comments: Take as directed Codeine Phosphate/Guaifenesi (Guaifenesin AC Cough Syrup) 10 MG-100 MG/5 ML LIQUID 10 Milliliters ORAL TWICE DAILY as needed for NIght cough Qty = 240 No Refills Copies To: ARCHIE MALDONADO,MILADYS Baker MD Review Statement Documenting Attending: ORLY CARDENAS MD
--- NOTE | 2017-02-21 18:06 | NUR ---
NURSING NOTE: PT AMBULATED IN HALLWAY ON 2L NC WITH O2 SAT 84%. PT DENIES FEELING SOB. PT RESTING IN CHAIR AFTER A COUPLE MIN O2 SAT 94% ON 2L NC. UNABLE TO AMBULATE ON RA AT THIS TIME DUE TO LOW O2 SAT ON 2LNC. WILL CONTINUE TO MONITOR.
[2017-02-21] MEDS ORDERED: GUAIFENESIN AC473 M2 PO (22:08)
[2017-02-21] MEDS ORDERED: GUAIFENESIN ER600 MG PO (22:08)
--- NOTE | 2017-02-21 22:10 | Patient Discharge Instructions ---
Discharge Instructions General Discharge Information You were seen/treated for: Community-acquired pneumonia Low oxygen saturation Watch for these problems: Worsening shortness of breath. Fevers, chills, chest pain Nausea, vomiting, diarrhea Special Instructions: Please take all medications as directed. Please follow-up with your PCP within one week after discharge. Please have your PCP repeat a CAT scan of the chest in the near future to follow -up on resolution of current findings. Diet Recommended Diet: Heart Healthy Activity Activity Self Limited: Yes Acute Coronary Syndrome Inclusion Criteria At DC or during hospital stay patient has or had the following: ACS DIAGNOSIS No Discharge Core Measures Meds if any: Prescribed or Continued at Discharge Meds if any: NOT Prescribed or Continued at Discharge Congestive Heart Failure Inclusion Criteria At DC or during hospital stay patient has or had the following: CHF DIAGNOSIS No Discharge Core Measures Meds if any: Prescribed or Continued at Discharge Meds if any: NOT Prescribed or Continued at Discharge Cerebrovascular accident Inclusion Criteria At DC or during hospital stay patient has or had the following: CVA/TIA Diagnosis No Discharge Core Measures Meds if any: Prescribed or Continued at Discharge Meds if any: NOT Prescribed or Continued at Discharge Venous thromboembolism Inclusion Criteria VTE Diagnosis No VTE Type NONE VTE Confirmed by (Test) NONE Discharge Core Measures - Per Current guidelines, there needs to be overlap - treatment for the first 5 days of Warfarin therapy. - If discharged on Warfarin prior to 5 days of - overlap therapy, the patient will need to be - assessed for post discharge needs including - *Post discharge parental anticoagulation - *Warfarin and/or parental anticoagulation education - *Follow up date to check INR post discharge At least 5 days overlap therapy as Inpatient No Meds if any: Prescribed or Continued at Discharge Note: Overlap Therapy is Warfarin and Anticoagulant Meds if any: NOT Prescribed or Continued at Discharge
[2017-02-21 22:49] VITALS: BP 138/68
--- NOTE | 2017-02-22 06:48 | PN- Housestaff ---
See Addendum Subjective Follow-up For: Multilobar pneumonia Subjective: Today she is feeling ok. She still does not feel like she is back to normal. Last night she was coughing a lot. She is not producing anything with the cough. She is still requiring oxygen 3 L. She has no chest pain. Even though she would like to go home to see her dog, she understands if she has to stay another day for her health. Review of Systems Constitutional: Reports: no symptoms. Cardiovascular: Denies: no symptoms. Respiratory: Reports: cough. Gastrointestinal: Denies: no symptoms. Genitourinary: Denies: no symptoms. Musculoskeletal: Denies: no symptoms. Objective Last 24 Hrs of Vital Signs/I&O Vital Signs Date Time Temp Pulse Resp B/P B/P Pulse O2 O2 Flow FiO2 Mean Ox Delivery Rate 02/22 0654 98.7 64 20 132/88 93 Nasal 3.0L Cannula 02/22 0000 Nasal 3.0L Cannula 02/21 2249 98.1 102 20 138/68 94 02/21 2050 94 Nasal 3.0L Cannula 02/21 1559 94 Nasal 2.0L Cannula 02/21 1427 99.2 89 20 136/68 97 Nasal 2.0L Cannula Intake & Output 02/22 1600 02/22 0800 02/22 0000 Intake Total 480 760 Output Total Balance 480 760 Intake, IV 280 Intake, Oral 480 480 Physical Exam General Appearance: Alert, Oriented X3, Cooperative, No Acute Distress Cardiovascular: Regular Rate, Normal S1, Normal S2, No Murmurs Lungs: Crackles bilaterally, coughing during exam but not producing sputum. Abdomen: Normal Bowel Sounds, Soft, No Masses Extremities: No Edema Current Medications: Current Medications Sig/Pancho Start time Last Medication Dose Route Stop Time Status Admin Acetaminophen 650 MG Q6P PRN 02/19 2100 AC 02/20 PO 0011 Acetaminophen/ 1 TAB Q6P PRN 02/19 2100 AC Hydrocodone Bitart PO Albuterol Sulfate 3 ML BID 02/21 2200 AC 02/21 INH 2049 Albuterol Sulfate 3 ML Q6 PRN 02/20 0230 DC 02/21 INH 0953 Aspirin Buffered 81 MG DAILY 02/20 1000 AC 02/20 PO 0933 Azithromycin 500 MG Q24H 02/21 2200 AC 02/21 Sodium Chloride 250 ML IV 2049 Azithromycin 500 MG Q24H 02/20 2200 DC 02/20 Dextrose/Water 250 ML IV 2202 Benzonatate 100 MG TID PRN 02/22 0930 AC PO Calcium Carbonate 500 MG DAILY 02/20 1000 AC 02/20 PO 0933 Ceftriaxone Sodium 1,000 MG DAILY 02/21 1000 AC 02/22 IV 0842 Enoxaparin Sodium 40 MG DAILY 02/20 1000 AC 02/20 SC 1052 Escitalopram Oxalate 20 MG DAILY 02/20 1000 AC 02/22 PO 0843 Guaifenesin 600 MG 0800,1600 02/21 1600 AC 02/22 PO 0844 Guaifenesin/Codeine 10 ML Q8P PRN 02/21 0815 AC 02/21 Phosphate PO 2050 Ipratropium [place] 2.5 ML BID 02/21 220 AC 02/21 INH 2050 Ipratropium [place] 2.5 ML ONCE PRN 02/20 0230 DC 02/21 INH 0954 Oxycodone/ 2 TAB Q6P PRN 02/19 2100 AC Acetaminophen PO Assessment/Plan Assessment: Patient is a 71-year-old female without any significant past medical history who has been feeling increased fatigue, sob on exertion, and productive cough with greenish plegm, and decreased appetite since 02/15/2017 found to have an unremarkable cxr, sinus tachy on ekg, BNP of 151, but dense bandlike consolidations in right middle lobe and lingula suggestive of multilobular infiltrates due to pneumonia. She is improving clinically, still coughing WBC always normal, but severe radiographic findings. She will need radiographic follow up upon discharge, which can potentially be tomorrow. 1. Hypoxic respiratory failure secondary to multilobar pneumonia: Improving. All studies/cultures negative so far. She is still coughing but not producing anything. We will hold her today because she does not look totally well and she is still requiring oxygen. -continue ipratropium prn, albuterol, prn and guafensin -Azithromycin 500mg q24h IV -Ceftriaxone 1g Q24H -Guaifensesin -Albuterol -Ipratropium -Codeine/robitussin -Benzonatate for cough #Depression Patient reports history of depression on escitalopram 20mg at home -continue escitalopram 20mg daily po #Pain management -tylenol 650 q6 prn pain scale 1-3 -vicodin q6 prn pain 4-6 scale #Home medications Patient takes tums 500mg daily and aspirin 81mg daily at home -continue tums 500mg daily -continue aspirin 81 mg daily 6. Anticoagulation: Lovenox Full code Problem List: 1. Acute respiratory failure with hypoxia 2. Pneumonia Pain Ratin Pain Location: No pain Pain Goal: Remain pain free Pain Plan: percoset Tomorrow's Labs & Rationales: None Discharge Plan Anticipated Discharge (Day): tomorrow
[2017-02-22 06:54] VITALS: BP 132/88
--- NOTE | 2017-02-22 14:24 | NUR ---
NSG NOTE: PATIENT AT REST W/O 02 92%; PATIENT AMBULATORY SAT W/O O2 87%
[2017-02-22 14:46] VITALS: BP 140/86
--- NOTE | 2017-02-22 15:54 | CT SCAN REPORT ---
EXAMINATION: CT CHEST WITHOUT CONTRAST CLINICAL INFORMATION: Shortness of breath and cough. COMPARISON: Chest CT 02/19/2017 TECHNIQUE: Multidetector volumetric CT imaging of the chest was done. Axial MIP volume rendering provided. Sagittal and coronal reformatted images were obtained. DLP: 262 mGy-cm FINDINGS: LUNGS: The central airways demonstrate minimal dependent secretions in the right mainstem bronchus. There is mild bronchiectasis of the lower lobes. Multifocal patchy consolidation is seen throughout both lungs, with increasing prominence at both lung apices. There is more dense consolidation with air bronchograms and associated bronchiectasis involving the right middle lobe and lingula. This is similar to prior. Scattered groundglass opacities are also seen throughout, also increased from previous. Trace right pleural effusion is increased from prior. No pneumothorax. MEDIASTINUM: The heart is normal in size. There is no pericardial effusion. Cystic attenuation lesion anterior to the ascending thoracic aorta is unchanged. Mildly prominent mediastinal lymph nodes are similar to prior. AXILLA: No lymphadenopathy. UPPER ABDOMEN: Gallstones partially visualized. OSSEOUS STRUCTURES: No acute or suspicious osseous abnormality. Multilevel degenerative changes throughout the spine. IMPRESSION: Worsening bilateral airspace opacities both groundglass and consolidative. Similar appearance of the more dense focal consolidation in both the right middle lobe and lingula with bronchiectasis and air bronchograms. Findings are most consistent with a multifocal pneumonia. Trace right pleural effusion is increased from prior.
[2017-02-22 22:51] VITALS: BP 140/84
[2017-02-23 06:10] VITALS: BP 134/70
--- NOTE | 2017-02-23 07:02 | PN- Housestaff ---
See Addendum Subjective Follow-up For: Multilobar pneumonia Subjective: She feels about the same today compared to yesterday. She is still coughing but not producing any sputum. Her breathing is about the same. She is still requiring oxygen. We discussed the results of her CAT scan. She understands she may have to stay longer even though she would like to go home to her dog. No chest pain Review of Systems Constitutional: Denies: no symptoms. Cardiovascular: Denies: no symptoms. Respiratory: Reports: see HPI, cough. Gastrointestinal: Denies: no symptoms. Genitourinary: Denies: no symptoms. Musculoskeletal: Denies: no symptoms. Objective Last 24 Hrs of Vital Signs/I&O Vital Signs Date Time Temp Pulse Resp B/P B/P Pulse O2 O2 Flow FiO2 Mean Ox Delivery Rate 02/23 0610 98.6 92 20 134/70 96 Nasal 3.0L Cannula 02/23 0000 Nasal 3.0L Cannula 02/22 2251 99.8 108 20 140/84 92 02/22 1632 97 Nasal 3.0L Cannula 02/22 1600 Nasal 2.0L Cannula 02/22 1446 98.3 97 20 140/86 96 Nasal 2.0L Cannula Intake & Output 02/23 1600 02/23 0800 02/23 0000 Intake Total 250 250 Output Total Balance 250 250 Intake, IV 250 250 Physical Exam General Appearance: Alert, Oriented X3, Cooperative, No Acute Distress Cardiovascular: Regular Rate, Normal S1, Normal S2 Lungs: Diffuse crackles bilaterally. Coughing during exam Abdomen: Normal Bowel Sounds, Soft, No Tenderness, No Masses Neurological: Normal Speech Extremities: Wearing compression stocking Current Medications: Current Medications Sig/Pancho Start time Last Medication Dose Route Stop Time Status Admin Acetaminophen 650 MG Q6P PRN 02/19 2100 AC 02/20 PO 0011 Acetaminophen/ 1 TAB Q6P PRN 02/19 2100 AC Hydrocodone Bitart PO Albuterol Sulfate 3 ML BID 02/21 2200 AC 02/22 INH 1629 Aspirin Buffered 81 MG DAILY 02/20 1000 AC 02/20 PO 0933 Azithromycin 500 MG Q24H 02/21 220 AC 02/22 Sodium Chloride 250 ML IV 2117 Benzonatate 100 MG TID PRN 02/22 0930 AC 02/22 PO 2232 Calcium Carbonate 500 MG DAILY 02/20 1000 AC 02/20 PO 0933 Ceftriaxone Sodium 1,000 MG DAILY 02/21 1000 AC 02/22 IV 0842 Enoxaparin Sodium 40 MG DAILY 02/20 1000 AC 02/20 SC 1052 Escitalopram Oxalate 20 MG DAILY 02/20 1000 AC 02/22 PO 0843 Guaifenesin 600 MG 0800,1600 02/21 1600 AC 02/22 PO 1541 Guaifenesin/Codeine 10 ML Q8P PRN 02/21 0815 AC 02/21 Phosphate PO 2050 Ipratropium [place] 2.5 ML BID 02/21 2200 AC 02/22 INH 1629 Oxycodone/ 2 TAB Q6P PRN 02/19 2100 AC Acetaminophen PO Last 24 Hrs of Lab/Red Results Last 24 Hrs of Labs/Mics: Laboratory Tests 02/23/17 0643: Sodium Pending, Potassium Pending, Chloride Pending, Carbon Dioxide Pending, Anion Gap Pending, BUN Pending, Creatinine Pending, BUN/Creatinine Ratio Pending , CBC w Diff Pending, WBC Pending, RBC Pending, Hgb Pending, Hct Pending, MCV Pending, MCH Pending, RDW Pending, Plt Count Pending, MPV Pending, PUBS MCHC Pending Assessment/Plan Assessment: Patient is a 71-year-old female without any significant past medical history who has been feeling increased fatigue, sob on exertion, and productive cough with greenish plegm, and decreased appetite since 02/15/2017 found to have an unremarkable cxr, sinus tachy on ekg, BNP of 151, but dense bandlike consolidations in right middle lobe and lingula suggestive of multilobular infiltrates due to pneumonia. She was initially improving but has stalled, still coughing. Initial radiographic findings (CT) were severe. CT done on 02/22/2017 showed more dense consolidations or effusion increase from prior. 1. Hypoxic respiratory failure secondary to multilobar pneumonia: She meets 2/4 SIRS criteria (tachy and leukocytosis) with source (lung) therefore meeting criteria of mild sepsis. Today she is about the same as yesterday. She is still coughing. She is not improving as would be expected. Because of this yesterday we ordered a chest CT which showed more dense consolidations and a right effusion is increased from prior. We will consult pulmonology to follow up on this. She may need broader antibiotic coverage and/or thoracocentesis. Parapneumonic effusions are often anaerobic and she is currently not being covered for this. -continue ipratropium prn, albuterol, prn and guafensin -Azithromycin 500mg q24h IV -Ceftriaxone 1g Q24H -Guaifensesin -Albuterol -Ipratropium -Codeine/robitussin -Benzonatate for cough -Consult pulm, follow-up recommendations -ABG #Depression Patient reports history of depression on escitalopram 20mg at home -continue escitalopram 20mg daily po #Pain management -tylenol 650 q6 prn pain scale 1-3 -vicodin q6 prn pain 4-6 scale #Home medications Patient takes tums 500mg daily and aspirin 81mg daily at home -continue tums 500mg daily -continue aspirin 81 mg daily 6. Anticoagulation: Lovenox Full code Problem List: 1. Pneumonia 2. Acute respiratory failure with hypoxia Pain Ratin Pain Location: No pain Pain Goal: Remain pain free Pain Plan: Vicodin and Percocet Tomorrow's Labs & Rationales: CBC, BEP
[2017-02-23 08:32] LABS: ABSOLUTE BASOPHIL COUNT 0 /CUMM (0.0-0.2); ABSOLUTE EOSINOPHIL COUNT 0.5 /CUMM (0.0-0.7); ABSOLUTE GRANULOCYTE CT 9.5 /CUMM (1.4-6.5); ABSOLUTE LYMPH COUNT 1.7 /CUMM (1.2-3.4); ABSOLUTE MONOCYTE COUNT 1.4 /CUMM (0.10-0.60); BASOPHIL % 0.2 % (0.0-2.0); EOSINOPHIL % 4.2 % (0-5); MEAN CORPUSCULAR HGB 27.6 PG (27.0-31.0); MEAN CORPUSCULAR HGB CONC 32.6 G/DL (33.0-37.0); MEAN CORPUSCULAR VOLUME 84.6 FL (81.0-99.0); MEAN PLATELET VOLUME 8.1 FL (7.4-10.4); PLATELET COUNT 400 /CUMM (130-400); RBC DISTRIBUTION WIDTH 15.9 % (11.5-14.5); RED BLOOD CELL CT 4.61 /CUMM (4.20-5.40); WHITE BLOOD CELL COUNT 13.2 /CUMM (4.8-10.8)
--- NOTE | 2017-02-23 10:33 | Cons- Pulmonary ---
ORLANDO MALDONADO,[facility] 02/23/17 1032: General Information and HPI Consulting Request Date of Consult: 02/23/17 Requested By: ORLY CARDENAS MD Reason for Consult: Discontinue most likely secondary to pneumonia Source of Information: patient, old records Exam Limitations: no limitations History of Present Illness: Ex-smoker 71-year-old female with no significant past medical history who presented complaining of exertional dyspnea and cough that started for the first time ever 8 days ago. Patient symptoms started as a productive cough, initially sputum was white turned within 2 days into a green.soon after patient started complaining of exertional dyspnea, fever, fatigue and decreased appetite. For these complaints she schedule appointment with her PCP Dr. Beckham last Sunday who instructed her to be seen in the ED further evaluation. On admission patient reported fever and shortness breath, But denies chills, night sweats, hemoptysis, headache, chest pain, palpitations, dizziness, nausea, vomiting, abdominal pain, changes in bowel habits or dysuria. Patient was admitted and was started on ceftriaxone and azithromycin, however her symptoms did not improve. Today patient still complaining of shortness breath, subjective fever, dry cough and feeling fatigued. Allergies/Medications Allergies: Coded Allergies: No Known Allergies (02/19/17) Home Med List: Aspirin (Ecotrin*) 81 MG TABLET.DR 1 TAB PO DAILY HEART/BLOOD (Reported) Calcium Carbonate/Vitamin D3 (Calcium 500 + D Tablet) 500 MG-400 TABLET 1 TAB PO DAILY SUPPLEMENT (Reported) Codeine Phosphate/Guaifenesi (Guaifenesin AC Cough Syrup) 10 MG-100 MG/5 ML LIQUID 10 ML PO Q12 PRN Congestion Cyanocobalamin (Vitamin B-12) (Unknown Strength) TABLET 1,000 MCG PO DAILY SUPPLEMENT (Reported) Escitalopram Oxalate 20 MG TABLET 1 TAB PO DAILY MENTAL HEALTH (Reported) Guaifenesin (Guaifenesin ER) 600 MG TAB.ER.12H 1 TAB PO 0800,1600 Congestion Review of Systems Review of Systems Constitutional: Reports: fever, weakness. Denies: chills, diaphoresis, malaise, unexplained weight loss. EENTM: Denies: visual changes, ear pain, hearing changes, nasal congestion, throat pain. Cardiovascular: Denies: chest pain, edema, orthopena, palpitations, peripheral edema, syncope. Respiratory: Reports: cough, short of breath. Denies: hemoptysis, orthopnea, sputum production, wheezing. GI: Denies: abdominal pain, constipation, diarrhea, nausea, vomiting. Genitourinary: Denies: dysuria, frequency. 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 Home Services at Home: None Smoking Status: Former Smoker (2ppd. last use 35 years ago) ETOH Use: denies use Illicit Drug Use: denies illicit drug use Exam & Diagnostic Data Last 24 Hrs of Vital Signs/I&O Vital Signs Date Time Temp Pulse Resp B/P B/P Pulse O2 O2 Flow FiO2 Mean Ox Delivery Rate 02/23 0610 98.6 92 20 134/70 96 Nasal 3.0L Cannula 02/23 0000 Nasal 3.0L Cannula 02/22 2251 99.8 108 20 140/84 92 02/22 1632 97 Nasal 3.0L Cannula 02/22 1600 Nasal 2.0L Cannula 02/22 1446 98.3 97 20 140/86 96 Nasal 2.0L Cannula Intake & Output 02/23 1600 02/23 0800 02/23 0000 Intake Total 250 250 Output Total Balance 250 250 Intake, IV 250 250 Physical Exam General Appearance: alert, awake, mild distress Head: atraumatic, normal appearance Ears, Nose, Throat: normal pharynx Neck: normal inspection, supple Respiratory: chest non-tender, diffuse rhonchi Cardiovascular: regular rate/rhythm, Nl S1/S2 with no MRGs. Extremities: weraing socks for venous insufficiency Last 48 Hrs of Labs/Red: Laboratory Tests 02/23/17 0643: Anion Gap 11, Estimated GFR > 60, BUN/Creatinine Ratio 12.9, CBC w Diff NO MAN DIFF REQ, RBC 4.61, MCV 84.6, MCH 27.6, RDW 15.9 H, MPV 8.1, Gran % 72.0, Lymphocytes % 12.8 L, Monocytes % 10.8 H, Eosinophils % 4.2, Basophils % 0.2, Absolute Granulocytes 9.5 H, Absolute Lymphocytes 1.7, Absolute Monocytes 1.4 H, Absolute Eosinophils 0.5, Absolute Basophils 0, PUBS MCHC 32.6 L Assessment/Plan Impression/Plan: 61-year-old female with no significant past medical history who presented complaining of shortness breath, productive cough, fatigue and fever. Pulmonary embolism was ruled out with CTA. CT chest showed multifocal infiltration with right pulmonary effusion. Patient was started on IV ceftriaxone and azithromycin however her symptoms did not improve. Tmax yesterday was 99.8. She continued to have leukocytosis. Patient will look lethargic and sleepy. Urine Legionella and strep pneumonia was negative. Panculture still negative except for sputum thus positive for yeast. Problems Acute hypoxic respiratory failure Depression GERD? Plan * TRC * ABG * Continue Guaifensesin and Benzonatate for cough * Follow panculture. * Right lung ultrasound to look if there is enough pleural effusion to be tapped * Continue ceftriaxone and azithromycin, if does not improve by tomorrow we will consider switching antibiotic to a more broad-spectrum coverage. * Consider consulting ID if patient did not improve by tomorrow. * Manic depression as per primary team * DVT prophylaxis at all time, full code. Consult Acknowledgment - Thank you for your consult request. RAMOS MALDONADO,Rhoda GIPSON 02/23/17 1806: Assessment/Plan Recommendations: I have personally seen and examined the patient. I agree with the resident's assessment and plan as detailed above. I have discussed the plan of care with the resident, and we will continue as written. I asked the house staff to contact me if they have any issues with the management. I will continue to follow along with you and make recommendations as necessary. Thank you. Consult Acknowledgment - Thank you for your consult request.
[2017-02-23 21:59] VITALS: BP 144/80
--- NOTE | 2017-02-24 04:51 | PN- Housestaff ---
See Addendum Subjective Follow-up For: Multilobar pneumonia Subjective: No overnight events. She slept well. She thinks she is better than yesterday, but it is too early to tell. Her breathing feels ok, still coughing. She is anxious to go home because her sister has to drive to take care of her dog twice a day, and she feels bad. However, she understands that she needs to get better first. Review of Systems Constitutional: Denies: no symptoms. Cardiovascular: Denies: no symptoms. Respiratory: Reports: see HPI. Gastrointestinal: Denies: no symptoms. Genitourinary: Denies: no symptoms. Objective Last 24 Hrs of Vital Signs/I&O Vital Signs Date Time Temp Pulse Resp B/P B/P Pulse O2 O2 Flow FiO2 Mean Ox Delivery Rate 02/24 0027 96 Nasal 2.0L Cannula 02/24 0000 Nasal 3.0L Cannula 02/23 2159 99.2 92 19 144/80 94 Nasal 2.0L Cannula 02/23 1600 Nasal 3.0L Cannula 02/23 1127 95 Nasal 2.0L Cannula 02/23 0800 96 Nasal 3.0L Cannula 02/23 0610 98.6 92 20 134/70 96 Nasal 3.0L Cannula Intake & Output 02/24 0800 / 0000 02/23 1600 Intake Total 10 1470 Output Total Balance 10 1470 Intake, IV 10 20 Intake, Oral 1450 Number 0 Bowel Movements Patient 170 lb Weight Physical Exam General Appearance: Alert, Oriented X3, Cooperative, No Acute Distress Cardiovascular: Regular Rate, Normal S1, Normal S2 Lungs: diffuse crackles Abdomen: Normal Bowel Sounds, Soft, No Tenderness Current Medications: Current Medications Sig/Pancho Start time Last Medication Dose Route Stop Time Status Admin Acetaminophen 650 MG Q6P PRN 02/19 2100 AC 02/20 PO 0011 Acetaminophen/ 1 TAB Q6P PRN 02/19 2100 AC Hydrocodone Bitart PO Albuterol Sulfate 3 ML BID 02/21 220 AC 02/24 INH 0005 Aspirin Buffered 81 MG DAILY 02/20 1000 DC 02/20 PO 0933 Azithromycin 500 MG Q24H 02/21 2200 DC 02/22 Sodium Chloride 250 ML IV 2117 Benzonatate 100 MG TID PRN 02/22 0930 AC 02/24 PO 0030 Calcium Carbonate 500 MG DAILY 07/04 1000 AC 02/20 PO 0933 Ceftazidime 1,000 MG Q8H 02/23 2200 AC 02/23 IV 2319 Ceftazidime 1,000 MG IQ8 02/23 1600 DC IV Ceftriaxone Sodium 1,000 MG DAILY 02/21 1000 DC 02/23 IV 0855 Enoxaparin Sodium 40 MG DAILY 02/20 1000 DC 02/20 SC 1052 Escitalopram Oxalate 20 MG DAILY 02/20 1000 AC 02/22 PO 0843 Guaifenesin 600 MG 0800,1600 02/21 1600 AC 02/23 PO 1648 Guaifenesin/Codeine 10 ML Q8P PRN 02/21 0815 AC 02/21 Phosphate PO 2050 Ipratropium [place] 2.5 ML BID 02/21 220 AC 02/24 INH 0005 Oxycodone/ 2 TAB Q6P PRN 02/19 2100 AC Acetaminophen PO Vancomycin HCl 1,000 MG Q12 02/23 2200 AC 02/23 Sodium Chloride 250 ML IV 2320 Vancomycin HCl 1,000 MG DAILY 02/23 1521 DC Sodium Chloride 250 ML IV Last 24 Hrs of Lab/Red Results Last 24 Hrs of Labs/Mics: Laboratory Tests 02/23/17 1050: pH 7.48 H, pCO2 43, pO2 85, HCO3 31 H, ABG O2 Sat (Measured) 97.0, Carboxyhemoglobin 0.8 L, O2 Concentration % 3L, O2 Delivery Method NC, Phlebotomy Draw Site RIGHT RADIAL 02/23/17 0643: Anion Gap 11, Estimated GFR > 60, BUN/Creatinine Ratio 12.9, CBC w Diff NO MAN DIFF REQ, RBC 4.61, MCV 84.6, MCH 27.6, RDW 15.9 H, MPV 8.1, Gran % 72.0, Lymphocytes % 12.8 L, Monocytes % 10.8 H, Eosinophils % 4.2, Basophils % 0.2, Absolute Granulocytes 9.5 H, Absolute Lymphocytes 1.7, Absolute Monocytes 1.4 H, Absolute Eosinophils 0.5, Absolute Basophils 0, PUBS MCHC 32.6 L Assessment/Plan Assessment: Patient is a 71-year-old female without any significant past medical history who has been feeling increased fatigue, sob on exertion, and productive cough with greenish plegm, and decreased appetite since 02/15/2017 found to have an unremarkable cxr, sinus tachy on ekg, BNP of 151, but dense bandlike consolidations in right middle lobe and lingula suggestive of multilobular infiltrates due to pneumonia. She was initially improving but has stalled, still coughing. Initial radiographic findings (CT) were severe. CT done on 02/22/2017 showed more dense consolidations or effusion increase from prior. 1. Hypoxic respiratory failure secondary to multilobar pneumonia: She meets 2/4 SIRS criteria (tachy and leukocytosis) with source (lung) therefore meeting criteria of mild sepsis. We switched her antibiotics yesterday to vancomycin and ceftazidime because she is not improving and her white count has increased to 13.2. An ultrasound of the lung showed that there was not enough fluid to tap. -continue ipratropium prn, albuterol, prn and guafensin -vancomycin and ceftazidime -Guaifensesin -Albuterol -Ipratropium -Codeine/robitussin -Benzonatate for cough -Consult pulm, follow-up recommendations #Depression Patient reports history of depression on escitalopram 20mg at home -continue escitalopram 20mg daily po #Pain management -tylenol 650 q6 prn pain scale 1-3 -vicodin q6 prn pain 4-6 scale #Home medications Patient takes tums 500mg daily and aspirin 81mg daily at home -continue tums 500mg daily -continue aspirin 81 mg daily 6. Anticoagulation: Lovenox Full code Problem List: 1. Pneumonia Pain Ratin Pain Location: no pain Pain Goal: Remain pain free Pain Plan: percoset Tomorrow's Labs & Rationales: CBC, BEP
[2017-02-24 06:41] VITALS: BP 152/76
--- NOTE | 2017-02-24 08:26 | NUR ---
PT REFUSED HER SCHEDULED LEXAPRO AND TUMS THIS AM. PT REPORTS SHE IS CONCERNED ABOUT CHARGES OF USING ABOVE MEDS. PT A&O X3- CALM AND COOPERATIVE. 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 WILL CONT TO MONITOR.
[2017-02-24 08:40] LABS: ABSOLUTE BASOPHIL COUNT 0 /CUMM (0.0-0.2); ABSOLUTE EOSINOPHIL COUNT 0.4 /CUMM (0.0-0.7); ABSOLUTE GRANULOCYTE CT 8.6 /CUMM (1.4-6.5); ABSOLUTE LYMPH COUNT 1.2 /CUMM (1.2-3.4); BASOPHIL % 0.3 % (0.0-2.0); EOSINOPHIL % 3.2 % (0-5); GRANULOCYTE % 76.8 % (42.2-75.2); HEMATOCRIT 37.7 % (37-47); MEAN CORPUSCULAR HGB 27.3 PG (27.0-31.0); MEAN CORPUSCULAR HGB CONC 32.1 G/DL (33.0-37.0); MEAN CORPUSCULAR VOLUME 84.8 FL (81.0-99.0); MEAN PLATELET VOLUME 7.9 FL (7.4-10.4); PLATELET COUNT 398 /CUMM (130-400); RBC DISTRIBUTION WIDTH 16.2 % (11.5-14.5); RED BLOOD CELL CT 4.44 /CUMM (4.20-5.40); WHITE BLOOD CELL COUNT 11.2 /CUMM (4.8-10.8)
[2017-02-24 14:45] VITALS: BP 132/80
--- NOTE | 2017-02-24 17:25 | PN- Pulmonary ---
Subjective HPI/Critical Care Issues: The patient is awake and alert. She reports feeling markedly improved. She is less short of breath. She notes her dyspnea is improved since admisson. She now only has a dry cough, and she denies any further complaints. Objective Current Medications: Current Medications Sig/Pancho Start time Last Medication Dose Route Stop Time Status Admin Acetaminophen 650 MG Q6P PRN 02/19 2100 AC 02/20 PO 0011 Acetaminophen/ 1 TAB Q6P PRN 02/19 2100 AC Hydrocodone Bitart PO Albuterol Sulfate 3 ML BID 02/21 2200 AC 02/24 INH 0910 Benzonatate 100 MG TID PRN 02/22 0930 AC 02/24 PO 1550 Calcium Carbonate 500 MG DAILY 02/20 1000 AC 02/20 PO 0933 Ceftazidime 1,000 MG Q8H 02/23 2200 AC 02/24 IV 1321 Ceftazidime 1,000 MG IQ8 02/23 1600 DC IV Escitalopram Oxalate 20 MG DAILY 02/20 1000 AC 02/22 PO 0843 Guaifenesin 600 MG 0800,1600 02/21 1600 AC 02/24 PO 0817 Guaifenesin/Codeine 10 ML Q8P PRN 02/21 0815 AC 02/21 Phosphate PO 2050 Ipratropium [place] 2.5 ML BID 02/21 2200 AC 02/24 INH 0910 Oxycodone/ 2 TAB Q6P PRN 02/19 2100 AC Acetaminophen PO Vancomycin HCl 1,000 MG Q12 02/23 2200 AC 02/24 Sodium Chloride 250 ML IV 0817 Vital Signs & I&O Last 24 Hrs of Vitals and I&O: Vital Signs Date Time Temp Pulse Resp B/P B/P Pulse O2 O2 Flow FiO2 Mean Ox Delivery Rate 02/24 1600 92 Nasal 1.0L Cannula 02/24 1445 98.9 98 20 132/80 92 Nasal 1.0L Cannula 02/24 1234 95 Nasal 1.0L Cannula 02/24 1231 90 Nasal 1.0L Cannula 02/24 1230 96 Nasal 1.0L Cannula 02/24 1230 91 Room Air 02/24 0930 97 Nasal 2.0L Cannula 02/24 0800 95 Nasal 3.0L Cannula 02/24 0641 99.7 90 20 152/76 94 02/24 0027 96 Nasal 2.0L Cannula 02/24 0000 Nasal 3.0L Cannula 02/23 2159 99.2 92 19 144/80 94 Nasal 2.0L Cannula Intake & Output 02/24 1600 02/24 0800 02/24 0000 Intake Total 560 630 10 Output Total Balance 560 630 10 Intake, IV 260 270 10 Intake, Oral 300 360 Number 0 Bowel Movements Physical Exam General Appearance: alert, awake, no distress, comfortable Head: atraumatic, normal appearance Ears, Nose, Throat: normal pharynx Neck: normal inspection, supple Respiratory: chest non-tender, diffuse rhonchi Cardiovascular: regular rate/rhythm, Nl S1/S2 with no MRGs. Extremities: weraing socks for venous insufficiency Results Last 24 Hrs of Lab Results: Laboratory Tests 02/24/17 0615: Anion Gap 11, Estimated GFR > 60, BUN/Creatinine Ratio 20.0, CBC w Diff NO MAN DIFF REQ, RBC 4.44, MCV 84.8, MCH 27.3, RDW 16.2 H, MPV 7.9, Gran % 76.8 H, Lymphocytes % 10.7 L, Monocytes % 9.0, Eosinophils % 3.2, Basophils % 0.3, Absolute Granulocytes 8.6 H, Absolute Lymphocytes 1.2, Absolute Monocytes 1.0 H, Absolute Eosinophils 0.4, Absolute Basophils 0, PUBS MCHC 32.1 L Impression/Plan Impression/Plan Impression/Plan: 1. Acute hypoxic respiratory failure secondary to multilobar pneumonia. 2. Depression. 3. Probable GERD. Recommendations: * TRC to continue. * Continue Guaifensesin and Benzonatate for cough as needed. * Follow culture results, will need to address antibiotic coverage based on results. Continue Vanco and Ceftaz for now as patient is clinically improving. * We will consider ID input tomorrow if the patient does not improve. * Depression management as per primary team. * DVT prophylaxis at all times, full code. * Continue all supportive care.
[2017-02-24 21:59] VITALS: BP 126/80
[2017-02-25 06:40] VITALS: BP 138/72
--- NOTE | 2017-02-25 09:02 | PN- Housestaff ---
EVELIN MALDONADO,[facility] 02/25/17 0901: Subjective Follow-up For: Multilobar pneumonia Subjective: I have seen and examined the patient this morning. Stable, Vitals WNL, Denies any overnight events. Review of Systems Constitutional: Denies: see HPI. Objective Last 24 Hrs of Vital Signs/I&O Vital Signs Date Time Temp Pulse Resp B/P B/P Pulse O2 O2 Flow FiO2 Mean Ox Delivery Rate 02/25 1833 94 Room Air 02/25 1414 99.3 96 20 130/63 92 Room Air 02/25 1021 93 Room Air 02/25 1021 92 Room Air 02/25 0800 95 Nasal 1.0L Cannula 02/25 0640 98.9 97 20 138/72 95 02/25 0000 Nasal 1.0L Cannula 02/24 2159 98.4 92 20 126/80 95 Nasal 3.0L Cannula Intake & Output 02/25 1600 02/25 0800 02/25 0000 Intake Total 275 20 845 Output Total Balance 275 20 845 Intake, IV 275 20 125 Intake, Oral 720 Physical Exam General Appearance: Alert, Oriented X3, Cooperative Current Medications: Current Medications Sig/Pancho Start time Last Medication Dose Route Stop Time Status Admin Acetaminophen 650 MG Q6P PRN 02/19 2100 AC 02/20 PO 0011 Acetaminophen/ 1 TAB Q6P PRN 02/19 2100 AC Hydrocodone Bitart PO Albuterol Sulfate 3 ML BID 02/21 220 AC 02/25 INH 0854 Benzonatate 100 MG TID PRN 02/22 0930 AC 02/24 PO 1550 Calcium Carbonate 500 MG DAILY 02/20 1000 AC 02/20 PO 0933 Ceftazidime 1,000 MG Q8H 02/23 2200 AC 02/25 IV 1352 Escitalopram Oxalate 20 MG DAILY 02/20 1000 AC 02/22 PO 0843 Guaifenesin 600 MG 0800,1600 / 1600 AC 02/24 PO 0817 Guaifenesin/Codeine 10 ML Q8P PRN 02/21 0815 AC 02/21 Phosphate PO 2050 Ipratropium [place] 2.5 ML BID 02/21 2200 AC 02/25 INH 0854 Oxycodone/ 2 TAB Q6P PRN 02/19 2100 AC Acetaminophen PO Vancomycin HCl 1,000 MG Q12 02/23 220 AC 02/25 Sodium Chloride 250 ML IV 0826 Assessment/Plan Assessment: Patient is a 71-year-old female without any significant past medical history who has been feeling increased fatigue, sob on exertion, and productive cough with greenish plegm, and decreased appetite since 02/15/2017 found to have an unremarkable cxr, sinus tachy on ekg, BNP of 151, but dense bandlike consolidations in right middle lobe and lingula suggestive of multilobular infiltrates due to pneumonia. She was initially improving but has stalled, still coughing. Initial radiographic findings (CT) were severe. CT done on 02/22/2017 showed more dense consolidations or effusion increase from prior. 1. Hypoxic respiratory failure secondary to multilobar pneumonia: She meets 2/4 SIRS criteria (tachy and leukocytosis) with source (lung) therefore meeting criteria of mild sepsis. We switched her antibiotics yesterday to vancomycin and ceftazidime because she is not improving and her white count has increased to 13.2. An ultrasound of the lung showed that there was not enough fluid to tap. -continue ipratropium prn, albuterol, prn and guafensin -vancomycin and ceftazidime -Guaifensesin -Albuterol -Ipratropium -Codeine/robitussin -Benzonatate for cough -Consult pulm, follow-up recommendations( Her respiratory cultures grew some mold and mixed kendall. Discuss to discontinue Vanco) #Depression Patient reports history of depression on escitalopram 20mg at home -continue escitalopram 20mg daily po #Pain management -tylenol 650 q6 prn pain scale 1-3 -vicodin q6 prn pain 4-6 scale #Home medications Patient takes tums 500mg daily and aspirin 81mg daily at home -continue tums 500mg daily -continue aspirin 81 mg daily 6. Anticoagulation: Lovenox Full code Problem List: 1. Pneumonia Pain Ratin Pain Location: NOne Pain Goal: Remain pain free Pain Plan: percoset Tomorrow's Labs & Rationales: CBC(Pneumonia) MICHAEL GARCIA MD 02/25/17 1157: Attending MD Review Statement Attending Statement Attending MD Statement: examined this patient, discuss w/resident/PA/TELESALES SUPERVISOR, agreed w/resident/PA/TELESALES SUPERVISOR, reviewed EMR data (avail), reviewed images, amended to note Attending Assessment/Plan: Patient seen and examined. She is doing much better today. She is on limited failure the left off oxygen supplementation. She's make him a saturation of 9224%. She denies cough or shortness of breath at rest or with exertion. She has remained afebrile and hemodynamically stable. On examination she has been into bilaterally on lungs are clear to auscultation. Recommendations: -Mild growth of yeast in the sputum. Consider discontinuing vancomycin after follow-up with the pulmonology service. -Consider discharging patient on a respiratory quinolone in other to cover GN pathogens like psuedomonas as well. -Repeat chest x-ray as an outpatient in 1-2 week.
[2017-02-25 14:14] VITALS: BP 130/63
[2017-02-25 22:42] VITALS: BP 126/68
[2017-02-26 06:56] VITALS: BP 142/86
--- NOTE | 2017-02-26 06:59 | PN- Housestaff ---
See Addendum Subjective Follow-up For: Multilobar pneumonia. Subjective: She is much improved today. Her breathing is doing well. She has been off oxygen for a day. Walking and breathing much better. She is still coughing, however it is not as bad as it was. She is ready to go home today. Review of Systems Constitutional: Denies: no symptoms. Cardiovascular: Denies: no symptoms. Respiratory: Reports: see HPI. Gastrointestinal: Denies: see HPI. Genitourinary: Denies: no symptoms. Musculoskeletal: Denies: no symptoms. Objective Last 24 Hrs of Vital Signs/I&O Vital Signs Date Time Temp Pulse Resp B/P B/P Pulse O2 O2 Flow FiO2 Mean Ox Delivery Rate 02/26 0656 98.5 96 20 142/86 92 02/26 0000 95 Room Air 02/25 2242 98.9 89 20 126/68 95 Room Air 02/25 2109 94 Room Air Room Air 02/25 1833 94 Room Air 02/25 1414 99.3 96 20 130/63 92 Room Air 02/25 1021 93 Room Air 02/25 1021 92 Room Air 02/25 0800 95 Nasal 1.0L Cannula Intake & Output 02/26 0800 07 0000 02/25 1600 Intake Total 390 880 275 Output Total Balance 390 880 275 Intake, IV 150 280 275 Intake, Oral 240 600 Number 0 Bowel Movements Physical Exam General Appearance: Alert, Oriented X3, Cooperative, No Acute Distress Cardiovascular: Regular Rate, Normal S1, Normal S2 Lungs: mild crackles bilaterally much improved. Abdomen: Normal Bowel Sounds, Soft, No Tenderness, No Masses Neurological: Normal Speech, Normal Tone, Cranial Nerves 3-12 NL Extremities: compression stockings on both legs Current Medications: Current Medications Sig/Pancho Start time Last Medication Dose Route Stop Time Status Admin Acetaminophen 650 MG Q6P PRN 02/19 2100 AC 02/20 PO 0011 Acetaminophen/ 1 TAB Q6P PRN 02/19 2100 AC Hydrocodone Bitart PO Albuterol Sulfate 3 ML BID 02/21 2200 AC 02/25 INH 2109 Benzonatate 100 MG TID PRN 02/22 0930 AC 02/25 PO 2106 Calcium Carbonate 500 MG DAILY 02/20 1000 AC 02/20 PO 0933 Ceftazidime 1,000 MG Q8H 02/23 2200 AC 02/26 IV 0606 Escitalopram Oxalate 20 MG DAILY 02/20 1000 AC 02/22 PO 0843 Guaifenesin 600 MG 0800,1600 02/21 1600 AC 02/24 PO 0817 Guaifenesin/Codeine 10 ML Q8P PRN 02/21 0815 AC 02/21 Phosphate PO 205 Ipratropium [place] 2.5 ML BID 02/21 220 AC 02/25 INH 2109 Oxycodone/ 2 TAB Q6P PRN 02/19 2100 AC Acetaminophen PO Vancomycin HCl 1,000 MG Q12 02/23 220 AC 02/25 Sodium Chloride 250 ML IV 2100 Last 24 Hrs of Lab/Red Results Last 24 Hrs of Labs/Mics: Laboratory Tests 02/26/17 0657: CBC w Diff Pending, WBC Pending, RBC Pending, Hgb Pending, Hct Pending, MCV Pending, MCH Pending, RDW Pending, Plt Count Pending, MPV Pending, PUBS MCHC Pending Assessment/Plan Assessment: Patient is a 71-year-old female without any significant past medical history who has been feeling increased fatigue, sob on exertion, and productive cough with greenish plegm, and decreased appetite since 02/15/2017 found to have an unremarkable cxr, sinus tachy on ekg, BNP of 151, but dense bandlike consolidations in right middle lobe and lingula suggestive of multilobular infiltrates due to pneumonia. She was initially improving but has stalled, still coughing. Initial radiographic findings (CT) were severe. CT done on 02/22/2017 showed more dense consolidations or effusion increase from prior. 1. Hypoxic respiratory failure secondary to multilobar pneumonia: She met 2/4 SIRS criteria (tachy and leukocytosis) with source (lung) therefore meeting criteria of mild sepsis. We switched her antibiotics to vancomycin and ceftazidime and her WBC has since come down and she has improved clinically. She has been off oxygen since yesterday and has been ambulating without gettinf dyspnic. She still is coughing but this has improved as well. She can go home today. -continue ipratropium prn, albuterol, prn and guafensin -vancomycin and ceftazidime. Levofloxacin at discharge for 7 more days. -Codeine/robitussin -Benzonatate for cough -Consult pulm, discharge antibiotc and if she needs repeat radiographic follow up #Depression Patient reports history of depression on escitalopram 20mg at home -continue escitalopram 20mg daily po #Pain management -tylenol 650 q6 prn pain scale 1-3 -vicodin q6 prn pain 4-6 scale #Home medications Patient takes tums 500mg daily and aspirin 81mg daily at home -continue tums 500mg daily -continue aspirin 81 mg daily 6. Anticoagulation: Lovenox Full code Problem List: 1. Pneumonia Pain Ratin Pain Location: no pain Pain Goal: Remain pain free Pain Plan: see A/P Tomorrow's Labs & Rationales: Dischage today Discharge Plan Anticipated Discharge (Day): today
[2017-02-26 08:14] LABS: ABSOLUTE BASOPHIL COUNT 0 /CUMM (0.0-0.2); ABSOLUTE EOSINOPHIL COUNT 0.4 /CUMM (0.0-0.7); ABSOLUTE GRANULOCYTE CT 5.7 /CUMM (1.4-6.5); ABSOLUTE LYMPH COUNT 1.1 /CUMM (1.2-3.4); ABSOLUTE MONOCYTE COUNT 0.6 /CUMM (0.10-0.60); BASOPHIL % 0.2 % (0.0-2.0); EOSINOPHIL % 5.7 % (0-5); GRANULOCYTE % 73.2 % (42.2-75.2); HEMATOCRIT 37.5 % (37-47); MEAN CORPUSCULAR HGB 27.3 PG (27.0-31.0); MEAN CORPUSCULAR HGB CONC 32.5 G/DL (33.0-37.0); MEAN CORPUSCULAR VOLUME 84.1 FL (81.0-99.0); MEAN PLATELET VOLUME 7.7 FL (7.4-10.4); PLATELET COUNT 415 /CUMM (130-400); RBC DISTRIBUTION WIDTH 16.1 % (11.5-14.5); RED BLOOD CELL CT 4.46 /CUMM (4.20-5.40); WHITE BLOOD CELL COUNT 7.9 /CUMM (4.8-10.8)
--- NOTE | 2017-02-26 09:19 | PN- Pulmonary ---
Subjective HPI/Critical Care Issues: Afebrile, leukocytosis resolved, culture continued to be negative, saturating well during ambulation on room air. Patient reports significant improvement of dyspnea, she is only complains of dry cough. Patient feels great and would like to be discharged today. Objective Current Medications: Current Medications Sig/Pancho Start time Last Medication Dose Route Stop Time Status Admin Acetaminophen 650 MG Q6P PRN 02/19 2100 AC 02/20 PO 0011 Acetaminophen/ 1 TAB Q6P PRN 02/19 2100 AC Hydrocodone Bitart PO Albuterol Sulfate 3 ML BID 02/21 2200 AC 02/25 INH 2109 Benzonatate 100 MG TID PRN 02/22 0930 AC 02/25 PO 2106 Calcium Carbonate 500 MG DAILY 02/20 1000 AC 02/20 PO 0933 Ceftazidime 1,000 MG Q8H 02/23 2200 AC 02/26 IV 0606 Escitalopram Oxalate 20 MG DAILY 02/20 1000 AC 02/22 PO 0843 Guaifenesin 600 MG 0800,1600 02/21 1600 AC 02/24 PO 0817 Guaifenesin/Codeine 10 ML Q8P PRN 02/21 0815 AC 02/21 Phosphate PO 2050 Ipratropium [place] 2.5 ML BID 02/21 2200 AC 02/25 INH 2109 Oxycodone/ 2 TAB Q6P PRN 02/19 2100 AC Acetaminophen PO Vancomycin HCl 1,000 MG Q12 02/23 220 AC 02/26 Sodium Chloride 250 ML IV 0838 Vital Signs & I&O Last 24 Hrs of Vitals and I&O: Vital Signs Date Time Temp Pulse Resp B/P B/P Pulse O2 O2 Flow FiO2 Mean Ox Delivery Rate 02/26 0656 98.5 96 20 142/86 92 02/26 0000 95 Room Air 02/25 2242 98.9 89 20 126/68 95 Room Air 02/25 2109 94 Room Air Room Air 02/25 1833 94 Room Air 02/25 1414 99.3 96 20 130/63 92 Room Air 02/25 1021 93 Room Air 02/25 1021 92 Room Air Intake & Output 02/26 1600 02/26 0800 07 0000 Intake Total 390 880 Output Total Balance 390 880 Intake, IV 150 280 Intake, Oral 240 600 Number 0 Bowel Movements Exam General Appearance: well developed/nourished, no apparent distress, alert, awake , comfortable Head: atraumatic, normal appearance Respiratory: normal breath sounds, chest non-tender, no respiratory distress, quiet respiration, lungs clear Cardiovascular: regular rate/rhythm, Normal S1/S2 with no MRGs Abdomen: soft, non-tender Extremities: normal inspection, no edema Results Last 24 Hrs of Lab Results: Laboratory Tests 02/26/17 0657: CBC w Diff NO MAN DIFF REQ, RBC 4.46, MCV 84.1, MCH 27.3, RDW 16.1 H, MPV 7.7, Gran % 73.2, Lymphocytes % 13.8 L, Monocytes % 7.1, Eosinophils % 5.7 H, Basophils % 0.2, Absolute Granulocytes 5.7, Absolute Lymphocytes 1.1 L, Absolute Monocytes 0.6, Absolute Eosinophils 0.4, Absolute Basophils 0, PUBS MCHC 32.5 L Impression/Plan Impression/Plan Impression/Plan: 61-year-old female with no significant past medical history who presented complaining of shortness breath, productive cough, fatigue and fever. Pulmonary embolism was ruled out with CTA. Patient was initially started on IV ceftriaxone and azithromycin, her symptom continued to deteriorate with worsening leukocytosis while in this antibiotic regimen. CT chest was repeated and showed worsening of multifocal infiltration with right pulmonary effusion. For that reason patient was switched to vancomycin and ceftazidime. Urine Legionella and strep pneumonia were negative. Sputum culture still negative except for yeast. Problems Acute hypoxic respiratory failure Depression GERD? Plan * Continue Guaifensesin and Benzonatate for cough * switch abx to oral levofloxacin to finish 7 more days. * GERD and depression management as per primary team. * Instruct patient to follow up with warble saw operator as an outpatient to repeat CT chest in 6-8 weeks of discharge. * DVT prophylaxis at all time, full code.
[2017-02-26] MEDS ORDERED: LEVAQUIN500 M1 PO ×2 (09:57→11:45)
[2017-02-26] MEDS ORDERED: GUAIFENESIN AC473 M2 PO (11:45)
[2017-02-26] MEDS ORDERED: GUAIFENESIN ER600 MG PO (11:45)
== END 2017-02-26 12:10 | DRG 871 ==
LOC: ERH 16:05 → ERHI 20:11 → 2NB 20:11 → ENRESERV 20:27 → ENTRNSPT 20:42 → 2NB 21:37 → CMPTRNSPT 02-20 07:03 → 2NB 02-21 06:50
PROVIDERS: Internal Medicine; Student in an Organized Health Care Education/Training Program; ADMIT Student in an Organized Health Care Education/Training Program
DX: A41.9 Sepsis, unspecified organism (principal); J96.01 Acute respiratory failure with hypoxia; J18.9 Pneumonia, unspecified organism; E86.0 Dehydration; F32.9 Major depressive disorder, single episode, unspecified; Z87.891 Personal history of nicotine dependence
CPT/HCPCS: 2NBSP; 36415; 81001; 82436; 87040; 87070; 87071; 87449; 87450; 93005; 93010; J0456; J0696; J0713; J1650; J3370; J7040; J7060

== ENCOUNTER 2017-10-13 10:46 | Emergency (ER) | payer OTHER, MEDICARE ==
[~2017-10-13] VITALS: Ht 157.5 cm; Wt 72.6 kg
[~2017-10-13 10:46] MED LIST: ASPIRIN EC81 M1 PO; CALCIUM 500 +1 EAC5 PO; ESCITALOPRAM OX20 MG PO; GUAIFENESIN AC473 M2 PO; GUAIFENESIN ER600 MG PO; LEVAQUIN500 M1 PO; VITAMIN B-121000 MC3 PO
--- NOTE | 2017-10-13 11:24 | ED UPPER/LOWER EXTREMITY COMPL ---
See Addendum History of Present Illness General Chief Complaint: Lower Extremity Injury Stated Complaint: PT REQUESTING X-RAY ON L KNEE Source: patient Exam Limitations: no limitations Vital Signs & Intake/Output Vital Signs & Intake/Output Vital Signs Date Time Temp Pulse Resp B/P B/P Pulse O2 O2 Flow FiO2 Mean Ox Delivery Rate 10/13 1236 98.0 78 18 136/68 95 Room Air 10/13 1051 98.2 89 16 155/81 99 Room Air Allergies Coded Allergies: No Known Allergies (02/19/17) Reconcile Medications Aspirin (Ecotrin*) 81 MG TABLET.DR 1 TAB PO DAILY HEART/BLOOD (Reported) Calcium Carbonate/Vitamin D3 (Calcium 500 + D Tablet) 500 MG-400 TABLET 1 TAB PO DAILY SUPPLEMENT (Reported) Codeine Phosphate/Guaifenesi (Guaifenesin AC Cough Syrup) 10 MG-100 MG/5 ML LIQUID 10 ML PO BID PRN NIght cough Cyanocobalamin (Vitamin B-12) (Unknown Strength) TABLET 1,000 MCG PO DAILY SUPPLEMENT (Reported) Escitalopram Oxalate 20 MG TABLET 1 TAB PO DAILY MENTAL HEALTH (Reported) Guaifenesin (Guaifenesin ER) 600 MG TAB.ER.12H 1 TAB PO BID Congestion Levofloxacin (Levaquin) 500 MG TABLET 1 TAB PO BID Pneumonia Take as directed Triage Note: PT TO ED FOR L KNEE PAIN AND BRUISING THAT BEGAN WHEN SHE HAD A MECHANICAL TRIP AND FALL LAST WEEK. DECLINES MEDS IN TRIAGE, REQUESTING XRAY. Triage Nurses Notes Reviewed? yes Onset: Abrupt Duration: constant Timing: recent history Severity: moderate Severity Numbers: 5 HPI: Patient is a 72-year-old female with an unremarkable past medical history presents emergency room with concerns that last Sunday 5 days ago patient was in her home she saw that her dog was defecating in the house patient abruptly tried to pickling tank operator her dog and place them on a pad however she fell forward striking the left knee to the floor and striking the forehead to a. Patient denies any loss of consciousness or head ache after and denies any neck or back pain however patient has been complaining of gradual onset of left localized knee pain and swelling in her knee and bruising that is radiating down her left leg. Patient has been taking Motrin with relief of symptoms (Cindy EDWARDS,Brennon) Past History Travel History Traveled to [place] past 21 day No Medical History Any Pertinent Medical History? 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 No (Brennon Driver) Review of Systems Review of Systems Constitutional: Reports: no symptoms. EENTM: Reports: no symptoms. Respiratory: Reports: no symptoms. Cardiovascular: Reports: no symptoms. Gastrointestinal/Abdominal: Reports: no symptoms. Genitourinary: Reports: no symptoms. Musculoskeletal: Reports: see HPI, joint pain, joint swelling. Skin: Reports: see HPI. Neurological/Psychological: Reports: no symptoms. Hematologic/Endocrine: Reports: no symptoms. Immunological: Reports: no symptoms. All Other Systems: Reviewed and Negative (Brennon Driver) Physical Exam Physical Exam General Appearance: no apparent distress, alert, comfortable Head: atraumatic Eyes: Bilateral: normal appearance. Ears, Nose, Throat: hearing grossly normal Neck: normal inspection Cardiovascular/Respiratory: no respiratory distress Peripheral Pulses: 2+ dorsalis pedis (L) Neurologic/Tendon: normal sensation, normal motor functions, normal tendon functions, responds to pain, no evidence tendon injury, no pulse deficit Comments: Left hip normal inspection straight leg raise performed Left knee noted moderate point tenderness and swelling and ecchymosis negative valgus stress test negative varus stress test negative anterior drawer test negative posterior drawer test Left lower extremity noted below the knee distal lower leg ecchymosis and mild swelling Left ankle nontender full active range of motion Left lower extremity dermatomes intact (Brennon Driver) Progress Differential Diagnosis: arterial insufficiency, compartment syndrome, contusion, dislocation, DVT, fracture, gout, septic arthritis, sprain, tendon injury Plan of Care: Orders Procedure Date/time Status XRY-KNEE COMPLETE LEFT 10/13 1052 Active Patient was neurovascularly intact to left lower extremity x-rays were unremarkable for osseous injury patient most likely has a knee contusion no concerns of DVT Dominic wrap was placed to left knee and lower leg pre-and post-neurovascular was intact discussed disposition plan with DR. DUDLEY WHO AGREES./ Diagnostic Imaging: Viewed by Me: Radiology Read. Radiology Impression: no fracture Comments: PATIENT: MARLENA ALLEN PRESENT AGE: 72 PATIENT ACCOUNT NO: [id number] : 44 LOCATION: [facility] ORDERING PHYSICIAN: Brennon EDWARDS SERVICE DATE: 10/13/17 EXAM TYPE: RAD - XRY-KNEE COMPLETE LEFT EXAMINATION: XR KNEE, LEFT CLINICAL INFORMATION: Fall. Left knee pain. COMPARISON: None TECHNIQUE: Four views of the left knee. FINDINGS: There is no visible acute fracture, dislocation or bony erosive changes. There is a small enthesophytes along the anterior superior anterior inferior patella. There is moderate prepatellar soft tissue swelling likely soft tissue contusion but no focal hematoma seen. IMPRESSION: Moderate prepatellar soft tissue swelling. No visible fracture or dislocation seen. DICTATED BY: Gavin Gates MD DATE/TIME DICTATED:10/13/171145 WATCH INSPECTOR:ERNIE DATE/TIME TRANSCRIBED:10/13/17 (Brennon Driver) Departure Departure Disposition: HOME OR SELF CARE Condition: Stable Clinical Impression Primary Impression: Contusion of left knee Referrals: Chapincito Rivera MD (PCP/Family) Jones MALDONADO,Tobi Additional Instructions: As discussed begin icing the area directly 20 minutes every 2 hours, begin using the Dominic wrap for swelling begin elevating THE leg for swelling begin using the prescription of a cane for fall prevention next week if no better follow-up with orthopedic Dr. Goldman for further evaluation treatment if symptoms worsen or you developing new concerning symptom return to emergency room Departure Forms: Customer Survey General Discharge Information Prescriptions: Current Visit Scripts [CANE] UNIT DAILY #1 MEDICAL EQUIPMENT - CANE DX LEFT KNEE CONTUSION USE DIRECTED (Brennon Driver) PA/KEY CARRIER Co-Sign Statement Statement: ED Attending supervision documentation- [X] I saw and evaluated the patient. I have also reviewed all the pertinent lab results and diagnostic results. I agree with the findings and the plan of care as documented in the PA's/KEY CARRIER's documentation. [] I have reviewed the ED Record and agree with the PA's/KEY CARRIER's documentation. [] Additions or exceptions (if any) to the PAs/KEY CARRIER's note and plan are summarized below: [] (Keaton Dudley DO)
--- NOTE | 2017-10-13 11:52 | RADIOLOGY REPORT ---
EXAMINATION: XR KNEE, LEFT CLINICAL INFORMATION: Fall. Left knee pain. COMPARISON: None TECHNIQUE: Four views of the left knee. FINDINGS: There is no visible acute fracture, dislocation or bony erosive changes. There is a small enthesophytes along the anterior superior anterior inferior patella. There is moderate prepatellar soft tissue swelling likely soft tissue contusion but no focal hematoma seen. IMPRESSION: Moderate prepatellar soft tissue swelling. No visible fracture or dislocation seen.
[2017-10-13] MEDS ORDERED: CANE (12:26)
[2017-10-13 12:36] VITALS: BP 136/68
== END 2017-10-13 14:42 ==
LOC: ERH 10:46
DX: S80.02XA Contusion of left knee, initial encounter (principal); W19.XXXA Unspecified fall, initial encounter; Y92.009 Unspecified place in unspecified non-institutional (private) residence as the place of occurrence of the external cause; Y93.9 Activity, unspecified
CPT/HCPCS: 73562-LT